=== PATIENT | female | born 1935 | race Hispanic/Latino ===

== ENCOUNTER → 2019-03-08 | Outpatient (CLI) | payer MEDICARE ==
[~2019-03-08] MED LIST: IOPAMIDOL 370 MG/ML 50ML INFUS..BTL INJ ONE; SODIUM CHLORIDE 0.9% 500ML 500 ML ONE; SODIUM CHLORIDE 0.9% INJ 50 ML BAG IV ONE
--- NOTE | 2019-03-08 13:10 | Diagnostic Imaging Report ---
EXAM: CT Chest WITH intravenous contrast 03/08/2019 11:39 AM INDICATION: Abnormal chest radiograph COMPARISON: None TECHNIQUE: Chest was scanned utilizing a multidetector helical scanner from the lung apex through the level of the adrenal glands after administration of IV contrast. Coronal and sagittal reformations were obtained. Routine protocol was performed. IV CONTRAST: 100mL Isovue 370 RADIATION DOSE: Total DLP: 276.4 mGy*cm. Dose modulation, iterative reconstruction, and/or weight based adjustment of the mA/kV was utilized to reduce the radiation dose to as low as reasonably achievable. COMPLICATIONS: None FINDINGS: LINES/ TUBES: None. LUNGS AND AIRWAYS: The central airways are patent. There is volume loss on the left with subsegmental atelectasis of the lingula and near complete atelectasis of the left lower lobe. Lower lobe predominant dependent groundglass opacities and interlobular septal thickening is suggestive of edema. Scattered subcentimeter pulmonary nodules measure up to 4 mm, for example that of the right middle lobe on series 2 image 54. PLEURA: Moderate left pleural effusion. Trace right pleural effusion. No pneumothorax. HEART AND MEDIASTINUM: Atrophic/surgically absent thyroid gland. No supraclavicular, axillary, mediastinal, or hilar lymphadenopathy. Multichamber cardiomegaly. Atherosclerotic calcifications involve the coronary arteries and aorta. No pericardial effusion. This study is not targeted for evaluation for pulmonary embolism, however there are no filling defects to the segmental level of the pulmonary arteries to suggest pulmonary embolism. Small sliding hiatal hernia. UPPER ABDOMEN: Limited contrast-enhanced views of the upper abdomen demonstrate a 1.1 cm cyst at the hepatic dome and no focal abnormality in the remainder of the partially visualized liver, spleen, adrenals, and upper most right kidney. BONES: No acute osseous injury. No suspicious lytic or blastic lesions. Sternotomy wires intact. SOFT TISSUES: Unremarkable. IMPRESSION: Cardiomegaly and pulmonary edema. Moderate left pleural effusion. Trace right pleural effusion. Associated near complete atelectasis of the left lower lobe and subsegmental atelectasis of the lingula. Scattered small pulmonary nodules measure up to 4 mm. If the patient is low risk, no further follow-up is needed. If the patient is high risk, consider chest CT in 12 months per Fleischner society guidelines 2017. Atherosclerotic arterial calcifications including of the coronary arteries. Signed by: Dex Yoder MD on 03/08/2019 1:07 PM
== END ==
LOC: CT 11:30
PROVIDERS: ATTEND Family Medicine Adult Medicine
DX: R91.8 Other nonspecific abnormal finding of lung field (principal)
CPT/HCPCS: 71260; 96360; J7040; Q9967

== ENCOUNTER 2019-08-05 15:49 | Inpatient (IN) | payer MEDICARE, OTHER ==
[~2019-08-05] VITALS: Ht 154.9 cm; Wt 52.4 kg
[2019-08-05] MEDS: ALBUTEROL SULF 0.083% NEB SOLN 3 ML NEB NEB STA ×2 (15:40→16:40)
--- OUTSIDE RECORDS SUMMARY | 2019-08-05 16:03 | XMS REPORT ---
Author Author [facility] Address Unknown Phone Unavailable Care Team Providers Care Personal Lines Underwriter Name Role Phone Maira TROTTER (NS) MARCELO Unavailable Unavailable Payers Payer Name Policy Type Policy Number Effective Date Expiration Date Problems This patient has no known problems. Allergies, Adverse Reactions, Alerts Allergy Name Allergy Type Status Severity Reaction(s) Onset Date Inactive Date Treating Clinician Comments No Known Allergies DA Active U 2019-06-23 00:00:00 Medications This patient has no known medications. Results Test Description Test Time Test Comments Text Results Atomic Results Result Comments GASTRIC,BIOPSY 2019-06-28 16:45:00 RUN DATE: 06/28/19 [facility] - Lab PAGE 1 RUN TIME: 5456 Specimen Inquiry RUN USER: INTERFACE PATIENT: DOMENICO MEDINA LOC: SASHA Valentin #: [id number] AGE/SX: 84/F ROOM: [facility] RE06/23/19REG DR: Fritz Gayle MD : 35 BED: A DIS: 06/26/19 STATUS: DIS IN TLOC: SPEC #: [id number] RECD: 06/25/19 STATUS: IDALIA OCHOA #: [id number] KOURTNEY: 06/24/19-[address]: Payam Nelson MD ENTERED: 06/25/19 SP TYPE: GASTRIC BX OTHR DR: Payam Nelson MD ORDERED: GROSS PROCEDURES: GROSS (06/28/19- 7143) TISSUES: 1. ANTRUM - BX 2. ESOPHAGUS, NOS - ULCER BX CLINICAL HISTORY COLLECTION DATE: 06/24/18 AP FINAL DIAGNOSIS Antrum, biopsy: MILD CHRONIC INFLAMMATION, GASTRIC MUCOSA NO INTESTINAL METAPLASIA SEEN NEGATIVE FOR HELICOBACTER PYLORI BY GIEMSA STAIN NEGATIVE FOR MALIGNANCY Esophagus, biopsy: ULCERATED SQUAMOUS ESOPHAGEAL MUCOSA NEGATIVE FOR METAPLASIA, DYSPLASIA, AND MALIGNANCY DMW/carmen D [id number], [id number] MACROSCOPIC Specimen (1) is received in formalin, labeled with the patient's name, identified as "antrum", and consists of de leon biopsy tissue measuring 0.3 cm, submitted as (1). Specimen (2) is received in formalin, labeled with the patient's name, identified as "esophagus", and consists of de leon biopsy tissue measuring 0.2 cm, submitted as (2). GROSS PERFORMED AT [facility] [address] [facility] CONTINUED ON NEXT PAGE -RUN DATE: 06/28/19 [facility] PAGE 2 RUN TIME: 1645 Specimen Inquiry RUN USER: INTERFACE SPEC #: [id number] PATIENT: DOMENICO MEDINA #[id number] (Continued) MACROSCOPIC (Continued) [place] [address] [phone] MICROSCOPIC All of the stains, including any controls performed, stain appropriately. MICROSCOPIC PERFORMED AT [facility] [address] [place] [address] [phone])[phone] PERFORM[address] SITE Diagnosis performed at: [facility] [address] [place] [address] Signed SIGNATURE ON FILE Jayne Blandon MD 06/28/19 4626 END OF REPORT - XR CHEST 1 V 2019-06-24 09:50:00 FAX: Fritz Simental MD [place]: St: ADM FAX: Long Smith [phone] Name: DOMENICO MEDINA [facility] : 1935 Age/S: 84/F [address] [facility] Unit #: [id number] Loc: V.20[address] [place] [address] Phys: Long Christian [employer]ATOR [employer] Acct: [id number] Dis Date: Status: ADM IN PHONE #: [phone] Exam Date: 06/24/2019919 FAX #: [phone] Reason: SHORTNESS OF BREATH EXAMS: CPT CODE: [id number] XR CHEST 1 V 70768 HISTORY: Shortness of breath. COMPARISON: None available. Location: [facility]. Moderate left effusion with compressive lower lobe atelectasis and patchy infiltrate. Patchy right upper lobe infiltrate as well. Cardiomegaly IMPRESSION: Moderate left effusion with compressive lower lobe atelectasis and infiltrate. Patchy right upper lobe infiltrate as well. at 0919 Reported and signed by: Aleksandar Almanza M.D. CC: Fritz Gayle; Long Christian NP Technologist: Sidra Yoon, RT(R); KURT GRESHAM RT(R) [facility] Date/Time/By: 06/24/2019 (0950) : By: [email or web address] Orig Print D/T: S: 06/24/2019 (4132) PAGE 1 Signed Report PROTHROMBIN TIME 2019-06-24 07:46:00 PROTHROMBIN TIME PATIENT (test code=PTP) 15.7 seconds 9.0-14.0 INTERNATIONAL NORMAL RATIO (test code=INR) 1.3 0.8-1.2 The therapeutic range for oral anticoagulant therapy formost indications is an international normalized ratio (INR)of between 2.0 and 3.0. The recommended therapeutic INRrange for various clinical situations is listed below: Clinical Situation INR range Pulmonary e mbolism treatment (2.0-3.0)Venous thrombosis treatmentVenous thrombosis prophylaxis (high risk surgery)Prevention of systemic embolism from: Acute myocardial infarction Valvular heart disease Atrial fibrillation Mechanical prosthetic heart valves (2.5-3.5) IS PATIENT ON ANTICOAGULANTS? NBASIC METABOLIC [id number] 07:38:00* Test Item Value Reference Range Comments SODIUM (test code=NA) 144 mmol/L 136-145 POTASSIUM (test code=K) 4.4 mmol/L 3.5-5.1 CHLORIDE (test code=CL) 117.0 mmol/L 98-107 CARBON DIOXIDE (test code=CO2) 19.0 mmol/L 21-32 ANION GAP (test code=GAP) 12.4 10-20 GLUCOSE (test code=GLU) 85 mg/dL 74-106 BLOOD UREA NITROGEN (test code=BUN) 39 mg/dL 7-18 GLOMERULAR FILTRATION RATE (test code=GFR) > 60 mL/min >=60 Estimated GFR by using Modified MDRD formula.Chronic kidney disease is defined as either kidney damageor GFR <60 mL/min/1.73 m2 for >3 months. CREATININE (test code=CREAT) 0.80 mg/dL 0.55-1.02 Note change in reference range due to change in reagent. BUN/CREATININE RATIO (test code=BUN/CREA) 48.8 10-20 CALCIUM (test code=CA) 8.4 mg/dL 8.5-10.1 BASIC METABOLIC [id number] 07:33:00* Test Item Value Reference Range Comments SODIUM (test code=NA) 144 mmol/L 136-145 POTASSIUM (test code=K) 4.4 mmol/L 3.5-5.1 CHLORIDE (test code=CL) 117.0 mmol/L 98-107 CARBON DIOXIDE (test code=CO2) mmol/L 21-32 ANION GAP (test code=GAP) 10-20 GLUCOSE (test code=GLU) mg/dL 74-106 BLOOD UREA NITROGEN (test code=BUN) mg/dL 7-18 GLOMERULAR FILTRATION RATE (test code=GFR) mL/min >=60 CREATININE (test code=CREAT) mg/dL 0.55-1.02 BUN/CREATININE RATIO (test code=BUN/CREA) 10-20 CALCIUM (test code=CA) mg/dL 8.5-10.1 CBC W/AUTO [id number] 07:23:00* Test Item Value Reference Range Comments WHITE BLOOD CELL (test code=WBC) 10.2 K/mm3 4.5-12.5 RED BLOOD CELL (test code=RBC) 3.45 mill/mm3 3.7-5.2 HEMOGLOBIN (test code=HGB) 9.4 gram/dL 11.5-15.5 RESULT VERIFIED BY REPEAT ANALYSIS HEMATOCRIT (test code=HCT) 31.0 % 36.0-46.0 MEAN CELL VOLUME (test code=MCV) 89.9 fL 80-98 MEAN CELL HGB (test code=MCH) 27.2 picogram 27.0-33.0 MEAN CELL HGB CONCETRATION (test code=MCHC) 30.3 gram/dL 33.0-36.0 RED CELL DISTRIBUTION WIDTH (test code=RDW) 17.2 % 11.6-16.2 RED CELL DISTRIBUTION WIDTH SD (test code=RDW-SD) 55.1 fL 37.0-51.0 PLATELET COUNT (test code=PLT) 196 K/mm3 150-450 MEAN PLATELET VOLUME (test code=MPV) 9.3 fL 6.7-11.0 NEUTROPHIL % (test code=NT%) 79.7 % 39.0-69.0 IMMATURE GRANULOCYTE % (test code=IG%) 3.4 % 0.0-5.0 LYMPHOCYTE % (test code=LY%) 9.4 % 25.0-55.0 MONOCYTE % (test code=MO%) 5.3 % 0.0-10.0 EOSINOPHIL % (test code=EO%) 1.6 % 0.0-5.0 BASOPHIL % (test code=BA%) 0.6 % 0.0-1.0 NUCLEATED RBC % (test code=NRBC%) 0.3 % 0-0 NEUTROPHIL # (test code=NT#) 8.12 K/mm3 1.8-7.7 IMMATURE GRANULOCYTE # (test code=IG#) 0.35 x10 3/uL 0-0.03 LYMPHOCYTE # (test code=LY#) 0.96 K/mm3 1.0-5.0 MONOCYTE # (test code=MO#) 0.54 K/mm3 0-0.8 EOSINOPHIL # (test code=EO#) 0.16 K/mm3 0.0-0.5 BASOPHIL # (test code=BA#) 0.06 K/mm3 0.0-0.2 NUCLEATED RBC # (test code=NRBC#) 0.03 K/mm3 0.0-0.1 B-TYPE NATRIURETIC [id number] 20:37:00* Test Item Value Reference Range Comments B-TYPE NATRIURETIC PEPTIDE (test code=BNP) 3464.06 pgram/mL 0-100 HGB [id number] 19:24:00* Test Item Value Reference Range Comments HEMOGLOBIN (test code=HGB) 6.2 gram/dL 11.5-15.5 HEMATOCRIT (test code=HCT) 21.4 % 36.0-46.0 Results called to [id number] by [email or web address] 06/23/19 1924Critical results verified and read back by Nurse? Y BASIC METABOLIC [id number] 19:00:00* Test Item Value Reference Range Comments SODIUM (test code=NA) 145 mmol/L 136-145 POTASSIUM (test code=K) 5.2 mmol/L 3.5-5.1 CHLORIDE (test code=CL) 120.0 mmol/L 98-107 CARBON DIOXIDE (test code=CO2) 20.0 mmol/L 21-32 ANION GAP (test code=GAP) 10.2 10-20 GLUCOSE (test code=GLU) 111 mg/dL 74-106 BLOOD UREA NITROGEN (test code=BUN) 42 mg/dL 7-18 GLOMERULAR FILTRATION RATE (test code=GFR) > 60 mL/min >=60 Estimated GFR by using Modified MDRD formula.Chronic kidney disease is defined as either kidney damageor GFR <60 mL/min/1.73 m2 for >3 months. CREATININE (test code=CREAT) 0.70 mg/dL 0.55-1.02 Note change in reference range due to change in reagent. BUN/CREATININE RATIO (test code=BUN/CREA) 60.0 10-20 CALCIUM (test code=CA) 8.2 mg/dL 8.5-10.1 BASIC METABOLIC [id number] 18:53:00* Test Item Value Reference Range Comments SODIUM (test code=NA) 145 mmol/L 136-145 POTASSIUM (test code=K) 5.2 mmol/L 3.5-5.1 CHLORIDE (test code=CL) 120.0 mmol/L 98-107 CARBON DIOXIDE (test code=CO2) mmol/L 21-32 ANION GAP (test code=GAP) 10-20 GLUCOSE (test code=GLU) mg/dL 74-106 BLOOD UREA NITROGEN (test code=BUN) mg/dL 7-18 GLOMERULAR FILTRATION RATE (test code=GFR) mL/min >=60 CREATININE (test code=CREAT) mg/dL 0.55-1.02 BUN/CREATININE RATIO (test code=BUN/CREA) 10-20 CALCIUM (test code=CA) mg/dL 8.5-10.1 HGB [id number] 18:12:00* Test Item Value Reference Range Comments HEMOGLOBIN (test code=HGB) 6.9 gram/dL 11.5-15.5 RESULT VERIFIED BY REPEAT ANALYSIS HEMATOCRIT (test code=HCT) 22.9 % 36.0-46.0 - CT ABD PELVIS [id number] 10:58:00 Name: DOMENICO MEDINA [facility] : 1935 Age/S: 84 / F [address] Unit #: [id number] Loc: [place] [address] Phys: Jeff Gilliam MD Acct: [id number] Dis Date: Status: REG ER PHONE #: [phone] Exam Date: 06/23/2019 1035 FAX #: [phone] Reason: GI bleed EXAMS: CPT CODE: [id number] CT ABD PELVIS W/CONT 97495 HISTORY: GI bleed, hematemesis TECHNIQUE: Immediate and delayed [address] images were obtained through the abdomen and pelvis after IV administration of 100 mL of Isovue-370 contrast. Sagittal and coronal reformatted images were generated. Automated exposure control for dose reduction. COMPARISON: None FINDINGS: Moderate bilateral pleural effusion. Partial left lingular and left lower lobe atelectasis. Cardiomegaly. Coronary artery calcification. Liver, gallbladder, pancreas, spleen, adrenal glands, and right kidney are unremarkable. Left inferior pole 2.8 cm renal cyst. Limited evaluation the GI tract without oral contrast. Large hiatal hernia. Stomach is otherwise unremarkable. No small bowel dilation. Colon is unremarkable. 8 cm right upper quadrant hernia containing loop of transverse colon. Additional smaller fat-containing ventral hernias. No inflammatory changes. No free air or free fluid. No lymphadenopathy. Aortoiliac atherosclerotic vascular calcification without aneurysm. Right aortofemoral bypass. Urinary bladder is unremarkable. Hysterectomy. No pelvic free fluid. Degenerative changes of the spine, sacroiliac joints, and hips. Proximal right femur fixation hardware. IMPRESSION: Large hiatal hernia. 8 cm right upper quadrant hernia containing loop of transverse colon. No inflammatory changes. No evidence of bowel obstruction. Moderate bilateral pleural effusion. Partial left lingular and left lower lobe atelectasis. PAGE 1 Signed Report (CONTINUED) Name: DOMENICO MEDINA [facility] : 1935 Age/S: 84 / F [address] Unit #: [id number] Loc: [place] [address] Phys: Jeff Gilliam MD Acct: [id number] Dis Date: Status: REG ER PHONE #: [phone] Exam Date: 06/23/2019 1035 FAX #: [phone] Reason: GI bleed EXAMS: CPT CODE: [id number] CT ABD PELVIS W/CONT 65745 <Continued> at 1058 Reported and signed by: Iva Bedoya D.O. CC: Jeff Gilliam MD Technologist:Connor Ramos RT(R),(MR),(CT) CTDI: DLP: Trnscb Date/Time: 06/23/2019 (6518) [email or web address] Orig Print D/T: S: 06/23/2019 (6548) PAGE 2 Signed Report BASIC METABOLIC [id number] 09:53:00* Test Item Value Reference Range Comments SODIUM (test code=NA) 142 mmol/L 136-145 POTASSIUM (test code=K) 5.3 mmol/L 3.5-5.1 CHLORIDE (test code=CL) 116.0 mmol/L 98-107 CARBON DIOXIDE (test code=CO2) 18.0 mmol/L 21-32 ANION GAP (test code=GAP) 13.3 10-20 GLUCOSE (test code=GLU) 96 mg/dL 74-106 BLOOD UREA NITROGEN (test code=BUN) 42 mg/dL 7-18 GLOMERULAR FILTRATION RATE (test code=GFR) > 60 mL/min >=60 Estimated GFR by using Modified MDRD formula.Chronic kidney disease is defined as either kidney damageor GFR <60 mL/min/1.73 m2 for >3 months. CREATININE (test code=CREAT) 0.80 mg/dL 0.55-1.02 Note change in reference range due to change in reagent. BUN/CREATININE RATIO (test code=BUN/CREA) 52.5 10-20 CALCIUM (test code=CA) 8.7 mg/dL 8.5-10.1 HEPATIC FUNCTION [id number] 09:53:00* Test Item Value Reference Range Comments TOTAL PROTEIN (test code=PROT) 6.7 gram/dL 6.4-8.2 ALBUMIN (test code=ALB) 2.8 g/dL 3.4-5.0 GLOBULIN (test code=GLOB) 3.9 gram/dL 2.7-4.2 ALBUMIN/GLOBULIN RATIO (test code=A/G) 0.7 0.75-1.50 BILIRUBIN TOTAL (test code=BILT) 0.70 mg/dL 0.0-1.0 BILIRUBIN DIRECT (test code=BILD) 0.29 mg/dL 0.0-0.20 SGOT/AST (test code=AST) 22 IUnit/L 15-37 SGPT/ALT (test code=ALT) 15 IUnit/L 12-78 ALKALINE PHOSPHATASE TOTAL (test code=ALKP) 108 IUnit/L 45-117 Note change in reference range due to change in reagent. [id number] 09:53:00* Test Item Value Reference Range Comments LIPASE (test code=LIP) 70 U/L 73.0-393.0 [id number] 09:53:00* Test Item Value Reference Range Comments TROPONIN-I (test code=TROPI) <0.015 ng/mL 0-0.045 LACTIC [id number] 09:53:00* Test Item Value Reference Range Comments LACTIC ACID (test code=LACT) 0.7 mmol/L 0.4-1.9 BASIC METABOLIC [id number] 09:33:00* Test Item Value Reference Range Comments SODIUM (test code=NA) 142 mmol/L 136-145 POTASSIUM (test code=K) 5.3 mmol/L 3.5-5.1 CHLORIDE (test code=CL) 116.0 mmol/L 98-107 CARBON DIOXIDE (test code=CO2) mmol/L 21-32 ANION GAP (test code=GAP) 10-20 GLUCOSE (test code=GLU) mg/dL 74-106 BLOOD UREA NITROGEN (test code=BUN) mg/dL 7-18 GLOMERULAR FILTRATION RATE (test code=GFR) mL/min >=60 CREATININE (test code=CREAT) mg/dL 0.55-1.02 BUN/CREATININE RATIO (test code=BUN/CREA) 10-20 CALCIUM (test code=CA) mg/dL 8.5-10.1 HEPATIC FUNCTION [id number] 09:33:00* Test Item Value Reference Range Comments TOTAL PROTEIN (test code=PROT) gram/dL 6.4-8.2 ALBUMIN (test code=ALB) g/dL 3.4-5.0 GLOBULIN (test code=GLOB) gram/dL 2.7-4.2 ALBUMIN/GLOBULIN RATIO (test code=A/G) 0.75-1.50 BILIRUBIN TOTAL (test code=BILT) mg/dL 0.0-1.0 BILIRUBIN DIRECT (test code=BILD) mg/dL 0.0-0.20 SGOT/AST (test code=AST) IUnit/L 15-37 SGPT/ALT (test code=ALT) IUnit/L 12-78 ALKALINE PHOSPHATASE TOTAL (test code=ALKP) IUnit/L 45-117 [id number] 09:33:00* Test Item Value Reference Range Comments LIPASE (test code=LIP) U/L 73.0-393.0 [id number] 09:33:00* Test Item Value Reference Range Comments TROPONIN-I (test code=TROPI) ng/mL 0-0.045 PROTHROMBIN [id number] 09:29:00* Test Item Value Reference Range Comments PROTHROMBIN TIME PATIENT (test code=PTP) 16.6 seconds 9.0-14.0 INTERNATIONAL NORMAL RATIO (test code=INR) 1.4 0.8-1.2 The therapeutic range for oral anticoagulant therapy formost indications is an international normalized ratio (INR)of between 2.0 and 3.0. The recommended therapeutic INRrange for various clinical situations is listed below: Clinical Situation INR range Pulmonary e mbolism treatment (2.0-3.0)Venous thrombosis treatmentVenous thrombosis prophylaxis (high risk surgery)Prevention of systemic embolism from: Acute myocardial infarction Valvular heart disease Atrial fibrillation Mechanical prosthetic heart valves (2.5-3.5) IS PATIENT ON ANTICOAGULANTS? NTHROMBOPLASTIN TIME [id number] 09:29:00* Test Item Value Reference Range Comments THROMBOPLASTIN TIME PARTIAL (test code=PTT) 34.6 seconds 25.0-36.5 IS PATIENT ON ANTICOAGULANTS? NCBC W/O [id number] 09:20:00* Test Item Value Reference Range Comments WHITE BLOOD CELL (test code=WBC) 7.9 K/mm3 4.5-12.5 RED BLOOD CELL (test code=RBC) 3.49 mill/mm3 3.7-5.2 HEMOGLOBIN (test code=HGB) 9.7 gram/dL 11.5-15.5 HEMATOCRIT (test code=HCT) 33.0 % 36.0-46.0 MEAN CELL VOLUME (test code=MCV) 94.6 fL 80-98 MEAN CELL HGB (test code=MCH) 27.8 picogram 27.0-33.0 MEAN CELL HGB CONCETRATION (test code=MCHC) 29.4 gram/dL 33.0-36.0 RED CELL DISTRIBUTION WIDTH (test code=RDW) 17.4 % 11.6-16.2 PLATELET COUNT (test code=PLT) 237 K/mm3 150-450 MEAN PLATELET VOLUME (test code=MPV) 9.6 fL 6.7-11.0 CT CHEST [id number] 12:57:00 [place] [address] Patient Name: DOMENICO MEDINA MR #: [id number] : 1935 Age/Sex: 83/F Req #: [id number] Adm Physician: Ordered by: MARCELO TROTTER MD Report #: [id number] Location: CT Room/Bed: Procedure: [id number] CT/CT CHEST W Exam Date: 03/08/19 Exam Time: 1230 REPORT STATUS: Signed EXAM: CT [address] [facility] WITH intravenous contrast 03/08/2019 11:39 AM INDICATION: Abnormal chest ra diograph COMPARISON: None TECHNIQUE: Chest was scanned utilizing a multide tector helical scanner from the lung apex through the level of the adrenal gla nds after administration of IV contrast. Coronal and sagittal reformations wer e obtained. Routine protocol was performed. IV CONTRAST: 100mL Isovue 370 RADIATION DOSE: Total DLP: 276.4 mGy*cm. Dose modulation, iterative reconst ruction, and/or weight based adjustment of the mA/kV was utilized to reduce th e radiation dose to as low as reasonably achievable. COMPLICATIONS: None FINDINGS: LINES/ TUBES: None. LUNGS AND AIRWAYS: The central airways are patent. There is volume loss on the left with subsegmental atelectasis of the lingula and near complete atelectasis of the left lower lobe. Lower lobe predominant dependent groundglass opacities and interlobular septal thickening is suggestive of edema. Scattered subcentimeter pulmonary nodules measure up to 4 mm, for example that of the right middle lobe on series 2 image 54. PLEURA: Moderate left pleural effusion. Trace right pleural effusion. No pne umothorax. HEART AND MEDIASTINUM: Atrophic/surgically absent thyroid gland. No supraclavicular, axillary, mediastinal, or hilar lymphadenopathy. Multich kristofer cardiomegaly. Atherosclerotic calcifications involve the coronary arteri es and aorta. No pericardial effusion. This study is not targeted for evaluat ion for pulmonary embolism, however there are no filling defects to the segmen mary kay level of the pulmonary arteries to suggest pulmonary embolism. Small slidi ng hiatal hernia. UPPER ABDOMEN: Limited contrast-enhanced views of the u pper abdomen demonstrate a 1.1 cm cyst at the hepatic dome and no focal abnorm ality in the remainder of the partially visualized liver, spleen, adrenals, an d upper most right kidney. BONES: No acute osseous injury. No suspicious ly tic or blastic lesions. Sternotomy wires intact. SOFT TISSUES: Unremarkab le. IMPRESSION: Cardiomegaly and pulmonary edema. Moderate left ple ural effusion. Trace right pleural effusion. Associated near complete atelecta sis of the left lower lobe and subsegmental atelectasis of the lingula. S cattered small pulmonary nodules measure up to 4 mm. If the patient is low ris k, no further follow-up is needed. If the patient is high risk, consider chest CT in 12 months per Fleischner society guidelines 2017. Atherosclerotic ar terial calcifications including of the coronary arteries. Signed by: Yao Casanova MD on 03/08/2019 1:07 PM Dictated By: DESIREE CASANOVA MD 1308 Transcribed By: RELL on 03/08/19 1 307 COPY TO: MARCELO TROTTER MD (NS)
[2019-08-05] MEDS ORDERED: ASPIRIN 81 MG CHEW TAB PO ONE (16:15)
[2019-08-05 16:22] LABS: BASOPHILS % 0.2 % (0.0-1.0); EOSINOPHILS % 0.2 % (0.0-6.0); HEMATOCRIT 35.7 % (34.2-44.1); HEMOGLOBIN 10.2 g/dL (12.0-16.0); LYMPHOCYTES # (AUTO) 0.9 (1.0-3.2); LYMPHOCYTES % 8.6 % (18.0-39.1); MEAN CORPUSCULAR HEMOGLOBIN 25.6 pg (28-32); MEAN CORPUSCULAR HGB CONC 28.6 g/dL (31-35); MEAN CORPUSCULAR VOLUME 89.7 fL (81-99); MONOCYTES # (AUTO) 0.5 (0.2-0.8); NEUTROPHILS # (AUTO) 9.1 (2.1-6.9); NEUTROPHILS % 85.6 % (38.7-80.0); PLATELET COUNT 292 x10e3/uL (140-360); RED BLOOD COUNT 3.98 x10e6/uL (3.6-5.1); RED CELL DISTRIBUTION WIDTH 19.6 % (11.7-14.4)
[2019-08-05 16:27] LABS: ABG HCO3 23 mmol/L (23-28); ABG PCO2 37 mmHg (41-51); ABG PO2 317 mmHg (80-105)
[2019-08-05 16:36] LABS: ALBUMIN 3.7 g/dL (3.5-5.0); ALBUMIN/GLOBULIN RATIO 1.1 (0.8-2.0); ALKALINE PHOSPHATASE 87 IU/L (40-150); ANION GAP 18.3 mmol/L (8-16); BLOOD UREA NITROGEN 25 mg/dL (7-26); BUN/CREATININE RATIO 26 (6-25); CALCIUM 9.6 mg/dL (8.4-10.2); CARBON DIOXIDE 23 mmol/L (22-29); CHLORIDE 107 mmol/L (98-107); CREATINE KINASE 32 IU/L (29-168); CREATININE, SERUM 0.96 mg/dL (0.57-1.11); EST GLOMERULAR FILTRATION RATE 55 ML/MIN (60-); GLUCOSE 99 mg/dL (74-118); POTASSIUM 3.3 mmol/L (3.5-5.1); SODIUM 145 mmol/L (136-145)
[2019-08-05 16:43] LABS: ALANINE AMINOTRANSFERASE < 6 IU/L (0-55)
[2019-08-05 16:47] LABS: B-TYPE NATRIURETIC PEPTIDE2 3382.8 pg/mL (0-100)
[2019-08-05] MEDS ORDERED: POTASSIUM CHLORIDE 20MEQ/100ML 100 ML IV ONE (17:00)
[2019-08-05] MEDS ORDERED: ALBUTEROL SULF 0.083% NEB SOLN 3 ML NEB NEB PRN (17:00)
[2019-08-05 17:02] LABS: CLARITY,URINE SL CLOUDY (CLEAR); COLOR,URINE YELLOW (YELLOW); LEUKOCYTE ESTERASE ,URINE NEGATIVE (NEGATIVE); NITRITE,URINE NEGATIVE (NEGATIVE); PROTEIN,URINE DIPSTICK TRACE (NEGATIVE)
--- NOTE | 2019-08-05 17:02 | Diagnostic Imaging Report ---
EXAM: CHEST SINGLE (PORTABLE) DATE: 08/05/2019 3:54 PM INDICATION: Rotatory distress COMPARISON: CT chest from 03/08/2019 FINDINGS/IMPRESSION: There are postsurgical changes from prior median sternotomy. Multiple surgical clips noted overlying the neck and left perihilar region. The trachea is midline. There is a small left and suspected trace right pleural effusion. There is prominence of the interstitium as well as patchy retrocardiac and left lower lung zone opacities. Findings can be seen in the setting of edema. An airspace process such as pneumonitis could have a similar appearance. There is no evidence for pneumothorax. The cardiac silhouette appears prominent which may be secondary to technique. Atherosclerotic calcifications noted within the thoracic aorta. No acute osseous abnormality is identified. Signed by: Dr. Milan Hernandez MD on 08/05/2019 4:59 PM
[2019-08-05 17:03] LABS: BILIRUBIN,URINE NEGATIVE (NEGATIVE); KETONES,URINE NEGATIVE (NEGATIVE); URINE UROBILINOGEN 1 mg/dL (0.2 - 1)
[2019-08-05 17:15] LABS: BACTERIA,URINE FEW /HPF; EPITHELIAL CELLS,URINE FEW /LPF
[2019-08-05 17:16] LABS: HYALINE CASTS 0-1 (0-1)
[2019-08-05] MEDS: PIPER-TAZ 3.375 GM 50 ML IV SCH (18:07)
[2019-08-05] MEDS: FAMOTIDINE 20 MG/2 ML VIAL IV SCH (18:08)
--- NOTE | 2019-08-05 18:32 | Diagnostic Imaging Report ---
EXAM: CT Chest, Abdomen and Pelvis WITH contrast INDICATION: Chest pain and shortness of breath suggestive of pulmonary concern for pulmonary embolism. Abdominal distention. COMPARISON: CT chest dated 03/08/2019. TECHNIQUE: Chest, abdomen and pelvis were scanned utilizing a multidetector helical scanner from the lung apex to the pubic symphysis before and after administration of IV contrast. Coronal and sagittal reformations were obtained. Pulmonary embolism protocol was performed. Scan was performed when during portal venous phase. IV CONTRAST: 100 cc Isovue-370. ORAL CONTRAST: Water RADIATION DOSE: Total DLP: 936.18 mGy*cm Estimated effective dose: (DLP x 0.015 x size factor) mSv COMPLICATIONS: None FINDINGS: LINES and TUBES: None. LUNGS AND AIRWAYS: No filling defects within the pulmonary arteries to suggest pulmonary embolism. Bilateral lower lobe compressive atelectasis. Mild bilateral pulmonary edema. PLEURA: Bilateral small to moderate volume pleural effusions. HEART AND MEDIASTINUM: The thyroid gland is normal. No mediastinal, hilar or axillary lymphadenopathy. The heart is mildly enlarged. There is no pericardial effusion. The main pulmonary artery measures 3.1 cm in diameter, mildly dilated. Status post CABG. Atherosclerotic calcifications of the thoracic aorta without aneurysmal dilatation. HEPATOBILIARY: Reflux of contrast into the hepatic veins and IVC suggestive of right-sided failure. 1.3 cm low-attenuation lesion in hepatic dome on image 9 series 5. Mild diffuse periportal edema. No biliary ductal dilation. GALLBLADDER: No radio-opaque stones or sludge. No wall thickening. SPLEEN: No splenomegaly. PANCREAS: No focal masses or ductal dilatation. ADRENALS: No adrenal nodules KIDNEYS/URETERS: Kidneys enhance symmetrically. No hydronephrosis. 0.9 cm cyst in the posterior lower pole of the left kidney which is mildly atrophic. Bilateral extrarenal pelvis. GI TRACT: No small bowel dilatation to suggest obstruction. There is a large volume of stool within the rectosigmoid, associated with mild rectal wall sigmoid wall thickening and trace fluid suggests stercoral colitis. There is a moderate volume of stool within the colon. Appendix is nonvisualized. Small right hernia. PELVIC ORGANS/BLADDER: The uterus is absent. The urinary bladder is decompressed by Herring catheter. LYMPH NODES: No lymphadenopathy. VESSELS: There is moderate atherosclerotic disease in the aorta and major arterial branches. PERITONEUM / RETROPERITONEUM: Small volume of free fluid within the pelvis. BONES: There are degenerative changes in the lumbar spine. Status post ORIF of the proximal right femur. SOFT TISSUES: Multiple ventral abdominal hernias, the largest infra umbilical containing nondilated bowel loops. IMPRESSION: 1. Bilateral vcpsv-mw-yxcgtain volume pleural effusions and bibasilar compressive atelectasis. 2. No pulmonary embolism. 3. Moderate cardiomegaly and mild bilateral pulmonary edema/venous congestion. 4. Findings suggestive of stercoral colitis and fecal impaction with a large volume of stool within the colon. 5. Small volume ascites. Signed by: Dr. Evelio Ceballos M.D. on 08/05/2019 6:29 PM
[2019-08-05] MEDS ORDERED: IOPAMIDOL 370 MG/ML 200 ML INFUS..BTL INJ ONE (19:01)
[2019-08-05] MEDS ORDERED: SODIUM CHLORIDE 0.9% 50ML 50 ML ONE (19:01)
--- NOTE | 2019-08-05 19:17 | NUR ---
P.99 R.20 128/50 98.9F -DISCHARGE VITAL SIGNS REPORT GIVEN TO SHERWIN VALLES BY KENDALL BUSH FROM PREVIOUS SHIFT NO DISTRESS NOTED FAMILY AT BEDSIDE
[2019-08-05 19:35] VITALS: BP 126/51
[2019-08-05] MEDS ORDERED: FUROSEMIDE INJ 10 MG/ML 4 ML VIAL IV SCH (21:00)
[2019-08-05] MEDS ORDERED: ZOLPIDEM TARTRATE 5 MG TAB PO PRN (21:00)
[2019-08-05 21:28] VITALS: BP 126/51
[2019-08-05 22:14] VITALS: BP 126/51
[2019-08-06] VITALS (8 sets, daily range): BP systolic 95–138; BP diastolic 43–66
[2019-08-06] MEDS: PIPER-TAZ 3.375 GM 50 ML IV SCH ×5 (00:31→23:51)
[2019-08-06 01:13] LABS: CREATINE KINASE MB 1.4 ng/mL (0-4.3)
[2019-08-06 05:10] LABS: BASOPHILS % 0.3 % (0.0-1.0); EOSINOPHILS % 0.2 % (0.0-6.0); HEMATOCRIT 31.2 % (34.2-44.1); HEMOGLOBIN 9.1 g/dL (12.0-16.0); LYMPHOCYTES # (AUTO) 0.5 (1.0-3.2); LYMPHOCYTES % 3.7 % (18.0-39.1); MEAN CORPUSCULAR HEMOGLOBIN 25.3 pg (28-32); MEAN CORPUSCULAR HGB CONC 29.2 g/dL (31-35); MEAN CORPUSCULAR VOLUME 86.7 fL (81-99); MONOCYTES # (AUTO) 0.9 (0.2-0.8); MONOCYTES % 6.1 % (4.4-11.3); NEUTROPHILS # (AUTO) 12.4 (2.1-6.9); NEUTROPHILS % 89.1 % (38.7-80.0); PLATELET COUNT 222 x10e3/uL (140-360); RED CELL DISTRIBUTION WIDTH 19.9 % (11.7-14.4)
[2019-08-06 07:03] LABS: ALANINE AMINOTRANSFERASE < 6 IU/L (0-55); ALBUMIN 3.1 g/dL (3.5-5.0); ALBUMIN/GLOBULIN RATIO 1.1 (0.8-2.0); ALKALINE PHOSPHATASE 61 IU/L (40-150); BLOOD UREA NITROGEN 29 mg/dL (7-26); BUN/CREATININE RATIO 27 (6-25); CALCIUM 8.9 mg/dL (8.4-10.2); CARBON DIOXIDE 21 mmol/L (22-29); CHLORIDE 107 mmol/L (98-107); CREATININE, SERUM 1.06 mg/dL (0.57-1.11); EST GLOMERULAR FILTRATION RATE 49 ML/MIN (60-); GLUCOSE 95 mg/dL (74-118); SODIUM 146 mmol/L (136-145)
[2019-08-06 07:21] LABS: CREATINE KINASE MB 2.1 ng/mL (0-5.0)
[2019-08-06 07:22] LABS: LYMPHOCYTES % (MANUAL) 5 % (19-48); MONOCYTES % (MANUAL) 7 % (3.4-9.0); NEUTROPHILS % (MANUAL) 88 % (40-74); PLATELET ESTIMATE ADEQUATE; PLATELET MORPHOLOGY COMMENT NORMAL; RBC MORPHOLOGY COMMENT NORMAL
[2019-08-06] MEDS ORDERED: MINERAL OIL 132 ML BTL PR ONE ×2 (08:10→08:50)
[2019-08-06] MEDS ORDERED: POTASSIUM CHLORIDE 20MEQ/100ML 100 ML IV ONE (08:45)
[2019-08-06] MEDS: CARVEDILOL 3.125 MG TAB PO SCH ×2 (09:00→18:17)
[2019-08-06] MEDS: LISINOPRIL 2.5 MG TAB PO SCH (09:00)
[2019-08-06] MEDS ORDERED: COZAAR25 MG PO (09:35)
[2019-08-06] MEDS ORDERED: CALCIUM600 MG PO (09:35)
[2019-08-06] MEDS ORDERED: LIPITOR20 MG PO (09:35)
[2019-08-06] MEDS ORDERED: CILOSTAZOL100 MG PO (09:35)
[2019-08-06] MEDS ORDERED: LASIX40 MG PO (09:35)
[2019-08-06] MEDS ORDERED: FISH OIL 1,2001 EAC1 PO (09:35)
[2019-08-06] MEDS ORDERED: PEPCID20 MG PO (09:35)
[2019-08-06] MEDS ORDERED: MULTI-VITAMIN1 EACH PO (09:35)
[2019-08-06] MEDS ORDERED: ASPIRIN EC81 MG PO (09:35)
[2019-08-06] MEDS ORDERED: PLAVIX75 MG PO (09:35)
[2019-08-06] MEDS ORDERED: POTASSIUM CHLO20 ME1 PO (09:35)
[2019-08-06] MEDS ORDERED: VITAMIN B-12500 MC3 SL (09:35)
[2019-08-06] MEDS ORDERED: ZOLOFT50 MG PO (09:41)
[2019-08-06] MEDS ORDERED: SYNTHROID50 MCG PO (09:42)
[2019-08-06] MEDS ORDERED: SYNTHROID100 MCG PO (09:42)
[2019-08-06] MEDS ORDERED: CARVEDILOL3.125 MG PO (09:42)
[2019-08-06] MEDS ORDERED: PANTOPRAZOLE SO40 MG PO (09:42)
[2019-08-06] MEDS ORDERED: MELATONIN3 MG PO (09:42)
[2019-08-06] MEDS ORDERED: SODIUM CHLORIDE 0.9% 250ML 250 ML ONE (10:45)
[2019-08-06] MEDS: FAMOTIDINE 20 MG/2 ML VIAL IV SCH ×2 (11:14→18:15)
--- NOTE | 2019-08-06 11:37 | Progress Note ---
DATE: SUBJECTIVE: The patient was taken off BiPAP last night and is now on nasal cannula. CT scan of the abdomen and pelvis showed fecal impaction and some chronic inflammation. PHYSICAL EXAMINATION: VITAL SIGNS: The patient is afebrile. The patient is on nasal cannula and saturating 100%. Temperature is 99.8. HEENT: Shows no facial swelling or erythema. CARDIAC: Reveals irregular rhythm with a systolic murmur. LUNGS: Auscultation of lungs shows decreased breath sounds at the bases. ABDOMEN: Mildly distended. There is a ventral hernia. There is no leg edema or calf tenderness. LABORATORY DATA: White blood cell count is 13.9, hemoglobin is 9.1. The platelet count is 222. The BUN to creatinine ratio is 29 to 1.06 and the carbon dioxide is 21. The potassium is 3 and the sodium is 146. The BNP is 3382. Troponin I is mildly elevated at 0.3. IMPRESSION: 1. Acute on chronic systolic congestive heart failure. 2. Fecal impaction with stercoral colitis. 3. Fever of unclear etiology. 4. Hypokalemia. PLAN: 1. Continue current antibiotics and await culture results. 2. Fleets enema. 3. GI consultation. 4. The patient's home medications once they are available. 5. Cardiology consultation. 6. Diuresis. Elias Adams MD [facility]/JESSEL /[id number]
[2019-08-06] MEDS ORDERED: PEG (High)/E-LYTE SOLN 4,000 ML BTL PO ONE (14:30)
--- NOTE | 2019-08-06 14:53 | Diagnostic Imaging Report ---
Abdomen, 1 view. History: NG tube placement. Findings: The patient is rotated and motion artifact is present. The NG tube is visualized terminating in the right mid abdomen, most likely in the gastric antrum. Mildly dilated loops of small bowel are noted in the pelvis. Signed by: Frankie Cifuentes on 08/06/2019 2:51 PM
[2019-08-06] MEDS: HYDROCODONE/APAP 5MG-325MG TAB PO PRN (20:20)
[2019-08-07] VITALS (7 sets, daily range): BP systolic 95–118; BP diastolic 47–54
--- NOTE | 2019-08-07 02:32 | Consultation ---
DATE OF CONSULTATION: 08/06/2019 GI Consult Note REASON FOR CONSULT: Severe constipation and fecal impaction. HISTORY OF PRESENTING ILLNESS: An 84-year-old female from whom I cannot derive any history. The patient is currently very somnolent and lethargic. She got admitted with decompensated heart failure, pulmonary edema. Currently being diuresed. She also has some underlying sepsis for which she is getting intravenous Zosyn. GI is being consulted because the CT scan of the abdomen and pelvis showed severe constipation and fecal impaction. The patient is not on any opioids. She has a baseline constipation at home. REVIEW OF SYSTEMS: Unobtainable. PAST MEDICAL HISTORY: Hypothyroidism, coronary artery disease, congestive heart failure, hyperlipidemia, hypertension, GERD. PAST SURGICAL HISTORY: Unknown, although patient has a surgical scar on abdominal exam. FAMILY HISTORY: Noncontributory given advanced age. SOCIAL HISTORY: No smoking, alcohol, or any illicit drug use. ALLERGIES: NO KNOWN DRUG ALLERGIES. HOME MEDICATIONS: 1. Aspirin. 2. Atorvastatin. 3. Calcium carbonate. 4. Carvedilol. 5. Cilostazol. 6. Clopidogrel. 7. Vitamin B12. 8. Famotidine. 9. Furosemide 40 mg p.o. daily. 10. Levothyroxine. 11. Losartan. 12. Melatonin. 13. Multivitamin. 14. [place]-3 fatty acid. 15. Pantoprazole. 16. Potassium chloride. 17. Sertraline. INPATIENT MEDICATIONS: List reviewed as per AUG. She is on: 1. Hydrocodone. 2. Intravenous Zosyn. 3. Famotidine. 4. Zolpidem. 5. Lisinopril. 6. Albuterol inhaler. 7. Carvedilol. PHYSICAL EXAMINATION: VITAL SIGNS: Temperature 97.5, pulse 83, respirations 18, blood pressure 116/66, oxygen saturation 96% on 3 L of nasal cannula. GENERAL: Lethargic, drowsy, somnolent. HEENT: Oral mucosa is moist, anicteric sclerae. CVS: S1, S2 regular. LUNGS: Bilateral occasional scattered rales predominantly at bases. ABDOMEN: Soft, nondistended, nontender. No periumbilical hernia. Bowel sounds present, although it is hypoactive. EXTREMITIES: Warm, trace bilateral leg edema. LABORATORY DATA: WBC 13.90, hemoglobin 9.1, hematocrit 31.2, MCV 86.7, and platelet count 222. Sodium 146, potassium 3.0, chloride 107, bicarb 21, BUN 29, creatinine 1.06, and glucose is 95. Liver enzymes showed a total bilirubin 1.6, AST 17, ALT less than 6, alkaline phosphatase 61. Abdominal x-ray is done earlier showed NG tube in place. CT of the abdomen and pelvis with contrast showed: 1. Bilateral opuiv-qk-ipmroumv volume pleural effusion, bibasilar compressive atelectasis. 2. No pulmonary embolism. 3. Moderate cardiomegaly and mild bilateral pulmonary edema/venous congestion. 4. Finding suggestive of stercoral colitis and fecal impaction with large volume of stool within the colon. 5. Small volume ascites. IMPRESSION: Slow transit constipation with severe fecal stasis and fecal impaction in the rectum. Because of the fecal impaction in the rectum, patient most likely having stercoral ulcer. PLAN: Digital disimpaction has already been attempted by the nurses. NG tube was placed to give GoLYTELY. However, the patient received only 500 mL of GoLYTELY and after that she pulled out the NG tube. The patient now is having bowel movements. RECOMMEND: I am taking the liberty to discontinue hydrocodone. We will place MiraLAX as well as a stool softener daily. Repeat abdominal x-ray tomorrow to check the fecal load. The rest of the care as per primary team. I thank Dr. Adams for allowing me to participate in the care of this patient. Gavin Lane MD [facility]/MODL /[id number]
[2019-08-07 05:57] LABS: BASOPHILS % 0.3 % (0.0-1.0); HEMATOCRIT 30.8 % (34.2-44.1); HEMOGLOBIN 8.9 g/dL (12.0-16.0); LYMPHOCYTES # (AUTO) 0.6 (1.0-3.2); MEAN CORPUSCULAR HEMOGLOBIN 25.5 pg (28-32); MEAN CORPUSCULAR HGB CONC 28.9 g/dL (31-35); MEAN CORPUSCULAR VOLUME 88.3 fL (81-99); MONOCYTES # (AUTO) 0.8 (0.2-0.8); MONOCYTES % 6.8 % (4.4-11.3); NEUTROPHILS # (AUTO) 9.8 (2.1-6.9); PLATELET COUNT 200 x10e3/uL (140-360); RED BLOOD COUNT 3.49 x10e6/uL (3.6-5.1); RED CELL DISTRIBUTION WIDTH 19.9 % (11.7-14.4)
[2019-08-07] MEDS: PIPER-TAZ 3.375 GM 50 ML IV SCH (05:58)
[2019-08-07 06:01] LABS: ALBUMIN 2.6 g/dL (3.5-5.0); ALBUMIN/GLOBULIN RATIO 0.9 (0.8-2.0); ALKALINE PHOSPHATASE 48 IU/L (40-150); ANION GAP 19.9 mmol/L (8-16); BLOOD UREA NITROGEN 44 mg/dL (7-26); BUN/CREATININE RATIO 29 (6-25); CALCIUM 8.2 mg/dL (8.4-10.2); CARBON DIOXIDE 22 mmol/L (22-29); CHLORIDE 107 mmol/L (98-107); EST GLOMERULAR FILTRATION RATE 33 ML/MIN (60-); GLUCOSE 74 mg/dL (74-118); SODIUM 146 mmol/L (136-145)
[2019-08-07 06:04] LABS: ALANINE AMINOTRANSFERASE < 6 IU/L (0-55); POTASSIUM 2.9 mmol/L (3.5-5.1)
[2019-08-07 08:04] LABS: BAND NEUTROPHILS % (MANUAL) 3 %; LYMPHOCYTES % (MANUAL) 8 % (19-48); MONOCYTES % (MANUAL) 4 % (3.4-9.0); NEUTROPHILS % (MANUAL) 85 % (40-74); RBC MORPHOLOGY COMMENT ABNORMAL
[2019-08-07 08:05] LABS: ANISOCYTOSIS SLIGHT; HYPOCHROMASIA MODERATE; PLATELET ESTIMATE ADEQUATE; PLATELET MORPHOLOGY COMMENT NORMAL
[2019-08-07] MEDS: LISINOPRIL 2.5 MG TAB PO SCH (09:00)
[2019-08-07] MEDS ORDERED: POTASSIUM CHLORIDE 20 MEQ TAB CR PO SCH (09:00)
[2019-08-07] MEDS: CARVEDILOL 3.125 MG TAB PO SCH ×2 (09:36→16:50)
[2019-08-07] MEDS: FAMOTIDINE 20 MG/2 ML VIAL IV SCH (09:36)
[2019-08-07] MEDS: POLYETHYLENE GLYCOL 3350 17 GM PACK PO SCH ×2 (09:36→16:51)
--- NOTE | 2019-08-07 12:15 | Diagnostic Imaging Report ---
Exam: Abdominal film Clinical History: Fecal load Comparison: 08/06/2019 DISCUSSION: Limited exam due to motion artifact. Enteric tube is not definitively identified and may have been removed area unchanged mild dilatation of several loops of small bowel. Postsurgical changes of the proximal right femur. Regional skeletal structures intact. Left common iliac arterial stent. IMPRESSION: Stable bowel gas pattern relative to 08/06/2019 accounting for differences in technique. Signed by: Dr. Grant Coto M.D. on 08/07/2019 12:12 PM
--- NOTE | 2019-08-07 13:45 | NUR ---
Pt with SIRS alert trigger with current changes. HR 107- 112, RR 22, temp to 99.3. The pt remains mildly confused as has been entire shift, he denies c/o abdominal pain, no distention to abdomen. Pt is only getting to 500 on the IS today and was achieving 1000 yesterday. Pt has declined PT with reported weakness. Repeat labs unremarkable. Have spoken with Dr Sandhu who gave an order to remove the NGT. Co worker Charlee Urena RN spoke with Dr Sales who has declined for SIRS work up. Addendum: 08/07/19 at 2025 by Timi Gamez RN Disregard this note. This is documented on wrong patient.
--- NOTE | 2019-08-07 13:47 | Diagnostic Imaging Report ---
Examination: Single AP view of the chest. COMPARISON: CT chest 08/05/2019 chest radiograph 08/05/2019 INDICATION: CHF DISCUSSION: Lungs are well-inflated. No appreciable interval change in diffuse perihilar interstitial opacities and bilateral pleural effusions. Stable enlargement of the cardiac silhouette with postsurgical changes of the mediastinum. No acute osseous abnormalities. Degenerative changes of the shoulder girdles. Surgical clips project over the lower cervical region. IMPRESSION: No significant interval change in pulmonary edema and small bilateral pleural effusions relative to 08/05/2019. Signed by: Dr. Grant Coto M.D. on 08/07/2019 1:44 PM
--- NOTE | 2019-08-07 14:48 | Progress Note ---
DATE: SUBJECTIVE: The patient had an enema and some GoLYTELY yesterday. She started moving her bowels. She still has some abdominal distention, but it has decreased. Her breathing is improved and she is on nasal cannula. PHYSICAL EXAMINATION: VITAL SIGNS: The patient is afebrile. The blood pressure is 118/51, and saturation is 100% on 3 L. The pulse is 77. HEENT: Shows no facial swelling or erythema. CARDIAC: Reveals a regular rate and rhythm with normal S1, S2. LUNGS: Auscultation of lungs reveals clear breath sounds bilaterally. There is no wheezing. ABDOMEN: Soft. There is mild distention. EXTREMITIES: There is no leg edema or calf tenderness. There is no cyanosis or clubbing. SKIN: Shows no rashes. NEUROLOGICAL: Shows no focal abnormalities. LABORATORY DATA: Potassium is 2.9 and the BUN to creatinine ratio is 44 to 1.5. White blood cell count is 11.4 and hemoglobin is 8.9. The platelet count is 200. IMPRESSION: 1. Fecal impaction with abdominal distention and discomfort. 2. Stercoral ulcer. 3. Bkrch-lf-ojrujpu systolic congestive heart failure. 4. Acute kidney injury. 5. Hypokalemia. PLAN: 1. Continue current bowel regimen. 2. Continue current cardiac regimen and await completion of Cardiology evaluation. 3. Cultures are negative and there is no clear source of infection. Therefore, we will hold antibiotics. 4. Discontinue Herring. 5. Out of bed as tolerated. Elias Adams MD [facility]/LIZETH /[id number]
[2019-08-07] MEDS ORDERED: PEG (High)/E-LYTE SOLN 4,000 ML BTL PO ONE (15:00)
[2019-08-07] MEDS: MINERAL OIL 16OZ PO SCH ×2 (16:06→20:34)
[2019-08-07] MEDS: FAMOTIDINE 20 MG TAB PO SCH (16:51)
[2019-08-07] MEDS ORDERED: FUROSEMIDE 40 MG TAB PO ONE (17:00)
--- NOTE | 2019-08-07 17:00 | NUR ---
Dr Evelio Adams notifed of decreased urine output. A one time dose of po lasix was ordered.
[2019-08-07] MEDS ORDERED: LORAZEPAM 0.5 MG TAB PO ONE (18:30)
[2019-08-07] MEDS: MELATONIN 5 MG TABLET PO SCH (20:34)
[2019-08-07] MEDS: ATORVASTATIN 10 MG TAB PO SCH (20:34)
[2019-08-07] MEDS: SENNA-S TABLET PO SCH (20:34)
[2019-08-07] MEDS: SERTRALINE HCL 50 MG TAB PO SCH (20:34)
--- NOTE | 2019-08-07 21:52 | NUR ---
patient had 2x liquid bowel movement, still confused and agitated at times. changed patients linens, bed alarm is on, will continue to monitor.
[2019-08-07] MEDS: HYDROCODONE/APAP 5MG-325MG TAB PO PRN (22:40)
[2019-08-08] VITALS (13 sets, daily range): BP systolic 70–181; BP diastolic 49–91
--- NOTE | 2019-08-08 01:10 | Consultation ---
DATE OF CONSULTATION: 08/07/2019 Cardiology Consultation Thank you, Dr. Elias Adams, for this Cardiology Consultation. DIAGNOSES: 1. Acute on chronic congestive heart failure. 2. Mental confusion, possible dementia. 3. Possible coronary artery bypass surgery patient had midsternal scar noted, but no history obtained at this time. 4. History of some ventral hernia surgery done as scar noted to the abdomen as a ventral hernia noted. 5. Left above knee amputation, possible peripheral artery disease. The patient is from senior living and she is brought in from senior living at this time most of the information obtained from the chart and from the nurse's note and some are the patient able to give but the patient is incoherent when she talks. She is from [facility]. The patient came here with some few shortness of breath and confusion. She is 84-year-old female, but she speaks sometimes [place]ian language also but very hard to get much history. She is known patient with chronic congestive heart failure and the patient other medications include levothyroxine, she does have hyperthyroidism and the patient's chest x-ray shows bilateral small pleural effusion. Mild cardiac enlargement without pulmonary edema. CAT scan of the abdomen and pelvis and chest shows no pulmonary embolus. Small to mild right pleural effusion noted. Heart is slightly enlarged and abdomen does not show any acute changes except possible constipation. LABORATORY EVALUATION: Shows the patient has a hemoglobin 10.2 g percent, and WBC count on 15 is 11,400 per cubic millimeter, platelets are 292,000 per cubic millimeter. BUN is 29, creatinine 1.06 with a GFR of 49 mL/minute. Glucose is 95 mg%. Troponins on the 14 one is normal, another is borderline high. At this time, clinical examination does not reveal any clinical congestive heart failure, short heart murmur noted at the area. The patient has some drifting of the left arm as she raises it, otherwise, the right arm and right leg are normal. Left, she has bony amputation. No pedal edema. Decreased pulses and dorsalis pedis are noted and at this time echo ejection fraction about 25%. I will review the echocardiogram. BNP is 3835 pg/mL, and the patient at this time is getting IV antibiotic and Zosyn for possible some sepsis. OTHER MEDICATIONS: Include the following, which include losartan and levothyroxine, and clopidogrel 75 mg once a day, atorvastatin 10 mg once a day, aspirin 81 mg once a day and other vitamins and sertraline are also noted. The patient is also on carvedilol 3.125 mg p.o. b.i.d. She is adequately covered for antibiotics and also possible infections getting antibiotics. EKG does not show acute ischemic changes. I do not think she had an MO showed any troponin leak. IMPRESSION: 1. Acute on chronic congestive heart failure, but at this time, chronic heart failure status. 2. Possible coronary artery bypass surgery, looking at the midline scar, but I do not have any history obtained on this. 3. Dementia and mild confusion. 4. Left arm weakness. 5. Possible sepsis. However, the patient quite appears to be normal, started on antibiotics. At this time, the patient is quite stable cardiacwise. There is no need for further cardiac evaluation and I will continue to follow the patient cardiac point of view, the patient did not have any myocardial infarction. Thank you again for this consultation. MD DELFINO [facility]/LIZETH /[id number]
[2019-08-08] MEDS: LEVOTHYROXINE SODIUM 100 MCG TAB PO SCH (05:54)
[2019-08-08 06:27] LABS: BASOPHILS % 0.4 % (0.0-1.0); EOSINOPHILS # (AUTO) 0.1 (0.0-0.4); EOSINOPHILS % 1.2 % (0.0-6.0); HEMATOCRIT 30.5 % (34.2-44.1); HEMOGLOBIN 8.9 g/dL (12.0-16.0); LYMPHOCYTES # (AUTO) 0.4 (1.0-3.2); LYMPHOCYTES % 4.1 % (18.0-39.1); MEAN CORPUSCULAR HEMOGLOBIN 25.6 pg (28-32); MEAN CORPUSCULAR HGB CONC 29.2 g/dL (31-35); MEAN CORPUSCULAR VOLUME 87.6 fL (81-99); MONOCYTES # (AUTO) 0.6 (0.2-0.8); MONOCYTES % 5.3 % (4.4-11.3); NEUTROPHILS # (AUTO) 9.3 (2.1-6.9); NEUTROPHILS % 88.1 % (38.7-80.0); PLATELET COUNT 179 x10e3/uL (140-360); RED BLOOD COUNT 3.48 x10e6/uL (3.6-5.1); RED CELL DISTRIBUTION WIDTH 19.5 % (11.7-14.4)
[2019-08-08 06:43] LABS: ALBUMIN 2.8 g/dL (3.5-5.0); ALBUMIN/GLOBULIN RATIO 0.9 (0.8-2.0); ANION GAP 20.4 mmol/L (8-16); CALCIUM 8.3 mg/dL (8.4-10.2); CREATININE, SERUM 1.96 mg/dL (0.57-1.11); POTASSIUM 3.4 mmol/L (3.5-5.1)
[2019-08-08] MEDS: HYDROCODONE/APAP 5MG-325MG TAB PO PRN (07:12)
[2019-08-08] MEDS: FAMOTIDINE 20 MG TAB PO SCH ×2 (08:00→17:43)
[2019-08-08] MEDS: ASPIRIN 81 MG ENTERIC COATED PO SCH (08:00)
[2019-08-08] MEDS: CLOPIDOGREL BISULFATE 75 MG TAB PO SCH (08:00)
[2019-08-08] MEDS: POLYETHYLENE GLYCOL 3350 17 GM PACK PO SCH ×2 (08:00→17:43)
[2019-08-08] MEDS: MINERAL OIL 16OZ PO SCH ×3 (08:00→21:00)
[2019-08-08] MEDS: LOSARTAN POTASSIUM 25 MG TAB PO SCH (08:00)
[2019-08-08] MEDS: MULTIVITAMINS/MINERALS TAB PO SCH (08:00)
[2019-08-08] MEDS: PANTOPRAZOLE SOD 40 MG TABEC PO SCH (08:00)
--- NOTE | 2019-08-08 08:45 | NUR ---
spoke w/Dr. Leblanc for new pt consult. waiting for MD carrizales for further orders
[2019-08-08] MEDS ORDERED: POTASSIUM CHLORIDE 20 MEQ TAB CR PO SCH (09:00)
[2019-08-08] MEDS: CARVEDILOL 3.125 MG TAB PO SCH ×2 (09:00→17:54)
[2019-08-08] MEDS: POTASSIUM CHLORIDE 10MEQ EA PO SCH (09:00)
[2019-08-08 09:25] LABS: EOSINOPHILS % (MANUAL) 1 % (0-7); LYMPHOCYTES % (MANUAL) 5 % (19-48); MONOCYTES % (MANUAL) 5 % (3.4-9.0); NEUTROPHILS % (MANUAL) 89 % (40-74); PLATELET ESTIMATE ADEQUATE; PLATELET MORPHOLOGY COMMENT NORMAL; RBC MORPHOLOGY COMMENT NORMAL
--- NOTE | 2019-08-08 17:23 | Progress Note ---
DATE: SUBJECTIVE: Creatinine was increased to 1.7 this morning. She still has some urine output. She is not complaining of dyspnea. She has less abdominal distention. PHYSICAL EXAMINATION: VITAL SIGNS: The patient is afebrile. The blood pressure is 124/59. HEENT: Shows no facial swelling or erythema. CARDIAC: Reveals regular rate and rhythm with normal S1, S2. There are no murmurs or rubs heard. LUNGS: Auscultation of lungs reveals clear breath sounds bilaterally. There is no wheezing. ABDOMEN: Mildly distended. It is soft. EXTREMITIES: There is no leg edema. LABORATORY DATA: White blood cell count is 10.6 and hemoglobin is 8.9. The platelet count is 179. The BUN to creatinine ratio is . The potassium is 3.4. IMPRESSION: 1. Tpcpc-lo-grrbwbs systolic congestive heart failure. 2. Aaozi-zk-fotqusg kidney injury. 3. Fecal impaction with abdominal distention. 4. Hypokalemia. PLAN: 1. Await Nephrology consultation. 2. Continue current cardiac regimen. 3. Out of bed as tolerated. 4. Physical therapy. Elias Adams MD [facility]/JESSEL /[id number]
[2019-08-08] MEDS ORDERED: SODIUM CHLORIDE 0.9% 1000ML 1,000 ML IV SCH (17:30)
[2019-08-08] MEDS ORDERED: DIATRIZOATE MEGL/DIATRIZOA SOD 30 ML BTL PO ONE (17:40)
--- NOTE | 2019-08-08 20:00 | NUR ---
TO CT WITH PATIENT, PATIENT AWAKE AND ALERT BUT CONFUSED. REPEATEDLY ASKING FOR WATER AND/OR ICE, REMINDED EACH TIME THAT SHE IS NPO FOR CT SCAN
--- NOTE | 2019-08-08 20:30 | NUR ---
AT BEDSIDE TO GIVE PATIENT PO MEDS WHEN PATIENT BECAME UNRESPONSIVE AND SEVERELY BRADYCARDIC PER MONITOR. RAPID RESPONSE CALLED, PATIENT BECAME PULSELESS AND CODE NICKOLAS CALLED, CPR STARTED AND BVM VENTILATION INITIATED. PO MEDS WERE NOT GIVEN. SEE CODE BLUE SHEET FOR FURTHER DETAILS
[2019-08-08] MEDS ORDERED: PROPOFOL IV EMULSION 10MG/ML 100 ML ONE (20:34)
[2019-08-08] MEDS: ATORVASTATIN 10 MG TAB PO SCH (21:00)
[2019-08-08] MEDS: SENNA-S TABLET PO SCH (21:00)
[2019-08-08] MEDS: SERTRALINE HCL 50 MG TAB PO SCH (21:00)
[2019-08-08] MEDS: MELATONIN 5 MG TABLET PO SCH (21:00)
[2019-08-08] MEDS ORDERED: SODIUM CHLORIDE 0.9% 1000ML 1,000 ML ONE (21:03)
[2019-08-08] MEDS ORDERED: SODIUM CHLORIDE 0.9% 250ML 0 ML ONE (21:07)
[2019-08-08] MEDS ORDERED: EPINEPHRINE HCL SYRINGE ONE (21:07)
--- NOTE | 2019-08-08 22:00 | Diagnostic Imaging Report ---
EXAM: CT Abdomen and Pelvis WITHOUT contrast INDICATION: Fecal impaction COMPARISON: abdominal CT 08/05/2019 TECHNIQUE: Abdomen and pelvis were scanned utilizing a multidetector helical scanner from the lung base to the pubic symphysis without administration of IV contrast. Absence of intravenous contrast decreases sensitivity for detection of focal lesions and vascular pathology. Coronal and sagittal reformations were obtained. Routine protocol was performed. IV CONTRAST: None ORAL CONTRAST: Gastrografin COMPLICATIONS: None RADIATION DOSE: Total DLP: 425 mGy*cm Estimated effective dose: (DLP x 0.015 x size factor) mSv CTDIvol has been reviewed. It is below the limits set by the Radiation Protocol Committee (RPC). Dose modulation, iterative reconstruction, and/or weight based adjustment of the mA/kV was utilized to reduce the radiation dose to as low as reasonably achievable. FINDINGS: LINES and TUBES: Urinary bladder Herring catheter in place, tip in the bladder lumen.. LOWER THORAX: Moderate bilateral pleural effusions and bibasilar atelectasis. Triple vessel coronary artery calcific atherosclerosis. Her cardiomegaly. Low density blood flow within the left ventricle cavity. Small sliding gastric hiatal hernia. HEPATOBILIARY: No focal hepatic lesions. No biliary ductal dilation. GALLBLADDER: Hyperdense layering gallbladder contents, likely stones and/or sludge and/or excreted contrast. Trace pericholecystic fluid. SPLEEN: No splenomegaly. PANCREAS: No focal masses or ductal dilatation. ADRENALS: No adrenal nodules KIDNEYS/URETERS: No hydronephrosis. No solid mass lesions. No stones. A 2.8 cm left renal inferior pole cyst.. GI TRACT: The previous large volume of stool in the rectum and distal colon has been evacuated minimal stool in the colon. Wall thickening of the sigmoid colon and rectum. No abnormal distention or evidence of bowel obstruction. Appendix is not clearly identified. There is however no fat stranding or adenopathy in the right lower quadrant to suggest appendicitis. PELVIC ORGANS/BLADDER: Hysterectomy. No adnexal masses. Urinary bladder is underdistended with urinary bladder Herring catheter in place, trace air in the bladder lumen. LYMPH NODES: No lymphadenopathy. VESSELS: Extensive vascular calcifications with surgical changes of partially visualized femoral-popliteal grafts. PERITONEUM / RETROPERITONEUM: Trace ascites. No free air. BONES: Partially visualized sternotomy fixation wires appear intact. Healed bilateral lower posterior rib fractures.. Degenerative changes in the spine hips and pelvis. Partially visualized right proximal femoral fixation hardware. Low bone mineral density. SOFT TISSUES: Multiple fat-containing upper abdominal ventral hernias. Small fat and bowel containing right lower abdominal hernia without evidence of obstruction or strangulation. There is diffuse anarsarca. IMPRESSION: Resolution of fecal impaction, with persistent findings of uncomplicated coloproctitis. Persistent volume overload with moderate bilateral pleural effusions, anasarca, and trace ascites, with moderate cardiomegaly. CT findings of anemia. Signed by: Nish Siegel DO on 08/08/2019 9:57 PM
--- NOTE | 2019-08-08 22:13 | Diagnostic Imaging Report ---
EXAM: Abdomen Radiograph 1 View INDICATION: Enteric tube placement, verify position COMPARISON: None FINDINGS: New enteric tube, tip projects in the right upper abdomen. ET tube tip projects at the level of the vannesa. Bibasilar thoracic haziness is likely due to pleural effusions. Mild cardiomegaly. Mild gaseous distention of included colonic loops. No dilated loops of small bowel. No abnormal abdominal calcifications.. No abnormal soft tissue masses. No pneumoperitoneum. No acute osseous abnormality. Sternotomy wires intact. Mild degenerative changes in the lumbar spine and pelvis. IMPRESSION: New enteric tube, tip projects in the right upper abdomen, likely within the distal gastric lumen. Partially visualized ET tube projects at the level of the vannesa, recommend chest x-ray to evaluate for ET tube position. Mild cardiomegaly and pleural effusions. Signed by: Nish Siegel DO on 08/08/2019 10:10 PM
--- NOTE | 2019-08-08 22:23 | Diagnostic Imaging Report ---
EXAMINATION: CHEST SINGLE (PORTABLE) INDICATION: Intubated, verify position COMPARISON: abdominal CT 08/08/2019 FINDINGS: TUBES and LINES: The ET tube tip is at the right mainstem bronchus origin. Enteric tube courses into the abdomen into the right upper abdomen, tip out of field of view. LUNGS/PLEURA: Normal right lung volume. Opacification of the left mid/lower lung. No pneumothorax. HEART AND MEDIASTINUM: Cardiac size is mildly enlarged. There are atherosclerotic calcifications within the aorta. BONES AND SOFT TISSUES: No acute osseous lesion. Sternotomy wires intact. Surgical clips in the right neck. Degenerative changes in the spine and shoulders. UPPER ABDOMEN: No free air under the diaphragm. IMPRESSION: The ET tube tip is at the right mainstem bronchus origin, consider 3 cm retraction. Opacification of the left lung base can be due to pleural effusion or atelectasis/collapse. Mild cardiomegaly. ET tube finding discussed with Dr. Adams at 10:17 PM on 08/08/[address] Siegel via telephone. Signed by: Nish Siegel DO on 08/08/2019 10:21 PM
[2019-08-08] MEDS ORDERED: PROPOFOL IV EMULSION 10 MG/ML 20 ML VIAL IV PRN (22:30)
[2019-08-08 22:51] LABS: ABG HCO3 17 mmol/L (23-28); ABG PCO2 39 mmHg (41-51); ABG PH 7.25 (7.31-7.41); ABG PO2 52 mmHg (80-105)
[2019-08-08] MEDS ORDERED: SODIUM BICARBONATE 8.4% SYRING 100 ML ONE (23:00)
[2019-08-08] MEDS ORDERED: DEXTROSE 5% 1,000 ML IV ONE (23:00)
--- NOTE | 2019-08-08 23:00 | NUR ---
able seaman visited the patient and family members. Patient was very active in the pentecostal in the past and family also expressed strong carleen in God . Telecommunications Engineer validated their carleen in God and provided compassionate presence , supportive listening, end of life pastoral support , education on end of life. Telecommunications Engineer also employed scripture and prayer and pastoral comfort and anticipatory grief support . Family expressed grief and accepting impending of the patient. Pt appeared comfortable , able seaman facilitated end of life discussion with medical team . family expressed more acceptance and peace and family was expressed great apprication for able seaman support and presence , day able seaman will follow up chaplain Gutierrez
--- NOTE | 2019-08-08 23:00 | NUR ---
DR Mara HUNTER HAS BEEN IN TO SEE PATIENT AND DISCUSS TREATMENT PLAN/PROGNOSIS WITH FAMILY. RIGHT IJ CENTRAL LINE PLACED FOR VASOPRESSOR USE. PARTNER MANAGER ALSO CAME TO MEET WITH PATIENT FAMILY AND PROVIDE SPIRITUAL SUPPORT
--- NOTE | 2019-08-08 23:04 | Consultation ---
DATE OF CONSULTATION: REASON FOR CONSULT: Acute kidney failure. HISTORY OF PRESENT ILLNESS: This is an 84-year-old female, who was admitted secondary to shortness of breath, decompensated heart failure, and pulmonary edema. The patient was receiving diuresis. PAST MEDICAL HISTORY: Include: 1. Hypothyroidism. 2. Congestive heart failure. 3. Coronary artery disease. 4. Hyperlipidemia. 5. Hypertension. 6. GERD. 7. Abdominal ventral hernia. 8. Congestive heart failure with ejection fraction of 24%. 9. Hypothyroidism. 10. Peripheral vascular disease. 11. ? CVA. PAST SURGICAL HISTORY: Surgical scar on abdomen and left AKA. FAMILY HISTORY: Noncontributory. SOCIAL HISTORY: No smoking. No alcohol. No drugs. ALLERGIES: NO KNOWN DRUG ALLERGIES. CURRENT MEDICATIONS: Include: 1. Atorvastatin. 2. Levothyroxine. 3. Protonix. 4. Carvedilol. 5. Sertraline. 6. Plavix. 7. Melatonin. 8. Mineral oil. 9. Aspirin. 10. Famotidine. 11. Multivitamin,. 12. Potassium 40 mEq every day. 13. Albuterol. 14. Ambien. REVIEW OF SYSTEMS: Positive lower abdominal pain. No shortness of breath. Currently, she is flat in bed. No chest pain. No coughing. No changes in vision. No changes in hearing. No sensory loss. No motor loss. No skin changes. REVIEW OF SYSTEMS: No other review of systems is available from the patient at this time, but she is thirsty. Denies any changes on skin. PHYSICAL EXAMINATION: VITAL SIGNS: Blood pressure 112/57, pulse 63. GENERAL: The patient is alert, following commands. HEENT: Pupils are equal and reactive to light and accommodation. NECK: No JVD. No bruits. LUNGS: Rhonchi. No rales. HEART: Regular rate and rhythm. No S3. No S4. ABDOMEN: Positive ventral hernia, past surgical scarring. EXTREMITIES: No clubbing, no cyanosis, no edema, status post AKA. NEUROLOGIC: The patient with facial droop, cannot move her face on the left side. Not available in history if the patient has a CVA or she had a facial nerve palsy. LABORATORY DATA: White count 10.58, hemoglobin 8.9, hematocrit 30.5, platelets adequate. PH 7.4 upon admission, pCO2 of 37. Sodium 144, potassium 2.4, chloride 107. Creatinine 1.96, BUN 54. Upon admission, creatinine was 1.06 on 08/06; on 08/07, 1.5; on 08/08, 1.96. BNP 3835 on 08/07. Albumin 2.8. CT chest and abdomen was done with IV contrast demonstrated bilateral [id number] volume pleural effusion. No pulmonary embolism. Moderate cardiomegaly with mild bilateral pulmonary edema, ulcers, stercoral colitis, and fecal impaction with large volume of stool within the colon. Chest x-ray yesterday, no interval changes in pulmonary edema and small bilateral pleural effusion. ASSESSMENT AND PLAN: Acute kidney failure, most likely contrast nephropathy secondary to IV contrast. The timing is consistent with that, but the patient also have probably some chronic kidney disease, so at this time, workup is in progress. We will check fractional excretion of sodium, urine eosinophil, urine protein electrophoresis since the patient is also anemic at this time to see if there are other reasons. At this time also with initial low rate normal saline since the patient has congestive heart failure of 24%. Diuretics were stopped secondary to increased creatinine. So in short, acute tubular necrosis, most likely contrast nephropathy, diuresis stopped. Saline started at a lower rate. Medications are all adjusted to renal function. According to nursing staff, family is not interested in dialysis. If it gets to that, we will contact the family to explain her case at this time. So far, dialysis is not needed. Jose Leblanc MD MA/LIZETH /[id number]
[2019-08-08] MEDS: SODIUM BICARBONATE 8.4% SYRING 100 ML in DEXTROSE 5% 1,000 ML IV SCH (23:06)
[2019-08-08 23:38] LABS: BASOPHILS % 0.4 % (0.0-1.0); EOSINOPHILS % 0.3 % (0.0-6.0); HEMATOCRIT 33.5 % (34.2-44.1); HEMOGLOBIN 9.4 g/dL (12.0-16.0); LYMPHOCYTES # (AUTO) 0.4 (1.0-3.2); LYMPHOCYTES % 3.3 % (18.0-39.1); MEAN CORPUSCULAR HEMOGLOBIN 25.5 pg (28-32); MEAN CORPUSCULAR HGB CONC 28.1 g/dL (31-35); MONOCYTES # (AUTO) 0.3 (0.2-0.8); MONOCYTES % 2.5 % (4.4-11.3); NEUTROPHILS # (AUTO) 10.2 (2.1-6.9); NEUTROPHILS % 91.5 % (38.7-80.0); PLATELET COUNT 224 x10e3/uL (140-360); RED BLOOD COUNT 3.68 x10e6/uL (3.6-5.1); RED CELL DISTRIBUTION WIDTH 19.2 % (11.7-14.4)
[2019-08-09] VITALS (31 sets, daily range): BP systolic 73–135; BP diastolic 45–82
[2019-08-09 00:03] LABS: ANION GAP 22.2 mmol/L (8-16); CALCIUM 8.7 mg/dL (8.4-10.2); CREATININE, SERUM 2.31 mg/dL (0.57-1.11); POTASSIUM 4.2 mmol/L (3.5-5.1)
--- NOTE | 2019-08-09 00:09 | Operative Report ---
DATE OF PROCEDURE: SURGEON: Elias Adams MD PROCEDURE: Central line placement under ultrasound guidance. INDICATION: Respiratory failure, bradycardia, and cardiopulmonary arrest. CONSENT: Consent was obtained from the family. ANESTHESIA: 1% lidocaine for local anesthesia. DESCRIPTION OF PROCEDURE: The patient was placed in a supine position. The right neck was prepped sterilely with chlorhexidine. A full-length drape, sterile gown, mask, and sterile gloves were used. The right internal jugular vein was located using an ultrasound machine. There was no intraluminal thrombosis or obstruction. The vein was then cannulated with a 16-gauge needle under direct visualization. A wire was placed through the needle. The dilator was then placed over the wire and a triple-lumen catheter was subsequently placed over the wire by the Seldinger technique. All the ports flushed. COMPLICATIONS: None. ESTIMATED BLOOD LOSS: None. Elias Adams MD LMH/MODL /[id number]
--- NOTE | 2019-08-09 00:25 | Diagnostic Imaging Report ---
EXAMINATION: CHEST XRAY LINE PLACEMENT INDICATION: Central line placement, verify position. COMPARISON: Chest x-ray 08/08/2019 21:07 PM FINDINGS: TUBES and LINES: New right IJ central venous catheter, tip in the superior cavoatrial junction. Slight interval retraction of the ET tube, tip in the low intrathoracic trachea, 2 cm above vannesa. ET tube tip courses into abdomen, tip out of field of view. LUNGS/PLEURA: Normal lung volumes. Persistent left mid/lower lung opacification. Perihilar haziness. No pneumothorax. HEART AND MEDIASTINUM: The cardiomediastinal silhouette is unremarkable. BONES AND SOFT TISSUES: Unchanged. UPPER ABDOMEN: No free air under the diaphragm. IMPRESSION: Lines and tubes as above. Left mid/lower lung lower lung opacification can be due to pleural effusion or atelectasis/collapse. Mild cardiomegaly, perihilar haziness is likely due to pulmonary edema.. Signed by: Nish Siegel DO on 08/09/2019 12:23 AM
--- NOTE | 2019-08-09 00:45 | NUR ---
SPOKE WITH GRANDDAUGHTER (ROSA) AND WITH DR Mara HUNTER REGARDING PATIENT CURRENT STATUS
[2019-08-09 01:41] LABS: ABG HCO3 20 mmol/L (23-28); ABG PCO2 35 mmHg (41-51); ABG PH 7.37 (7.31-7.41); ABG PO2 108 mmHg (80-105)
--- NOTE | 2019-08-09 01:41 | NUR ---
ABG RESULTS CALLED TO DR Mara HUNTER, NO NEW ORDERS
[2019-08-09] MEDS ORDERED: VANCOMYCIN 1GM/NS 250 ML 250 ML IV ONE (04:30)
[2019-08-09 04:33] LABS: INR 1.32; PROTHROMBIN TIME 17.3 seconds (11.9-14.5)
[2019-08-09 04:34] LABS: PARTIAL THROMBOPLASTIN TIME 56.9 seconds (23.8-35.5)
[2019-08-09 04:39] LABS: CREATINE KINASE MB 3.8 ng/mL (0-5.0)
[2019-08-09] MEDS: AZITHROMYCIN 500MG/NS 250 ML 250 ML IV SCH (05:07)
[2019-08-09 05:21] LABS: BASOPHILS % 0.3 % (0.0-1.0); EOSINOPHILS % 0.3 % (0.0-6.0); HEMATOCRIT 32.5 % (34.2-44.1); HEMOGLOBIN 9.6 g/dL (12.0-16.0); LYMPHOCYTES # (AUTO) 0.6 (1.0-3.2); LYMPHOCYTES % 5.2 % (18.0-39.1); MEAN CORPUSCULAR HEMOGLOBIN 25.7 pg (28-32); MEAN CORPUSCULAR HGB CONC 29.5 g/dL (31-35); MEAN CORPUSCULAR VOLUME 87.1 fL (81-99); MONOCYTES # (AUTO) 0.5 (0.2-0.8); MONOCYTES % 4.2 % (4.4-11.3); NEUTROPHILS # (AUTO) 9.8 (2.1-6.9); NEUTROPHILS % 89.3 % (38.7-80.0); PLATELET COUNT 210 x10e3/uL (140-360); RED BLOOD COUNT 3.73 x10e6/uL (3.6-5.1); RED CELL DISTRIBUTION WIDTH 19.1 % (11.7-14.4)
[2019-08-09 05:47] LABS: CREATINE KINASE MB 22.2 ng/mL (0-5.0)
[2019-08-09 05:52] LABS: CREATININE,URINE RANDOM 41.03 mg/dL (47-110); SODIUM,URINE 46 mmol/L
[2019-08-09] MEDS: LEVOTHYROXINE SODIUM 100 MCG TAB PO SCH (06:00)
[2019-08-09] MEDS: CEFEPIME 1GM/NS 0.9% 50 ML 50 ML IV SCH ×3 (06:09→21:51)
[2019-08-09 06:15] LABS: ALBUMIN 2.5 g/dL (3.5-5.0); ALBUMIN/GLOBULIN RATIO 0.9 (0.8-2.0); ANION GAP 18.9 mmol/L (8-16); CALCIUM 8.8 mg/dL (8.4-10.2); CREATININE, SERUM 2.5 mg/dL (0.57-1.11); POTASSIUM 3.9 mmol/L (3.5-5.1)
[2019-08-09 06:22] LABS: TOTAL PROTEIN, URINE 408.2 mg/dL (1-14)
[2019-08-09 06:25] LABS: EOSINOPHIL SMEAR,URINE NONE SEEN (NONE SEEN)
[2019-08-09] MEDS ORDERED: NOREPINEPHRINE 8 MG/D5W 250 ML 250 ML ONE (06:45)
[2019-08-09 07:00] LABS: EOSINOPHILS % (MANUAL) 1 % (0-7); LYMPHOCYTES % (MANUAL) 5 % (19-48); MONOCYTES % (MANUAL) 2 % (3.4-9.0); NEUTROPHILS % (MANUAL) 92 % (40-74)
[2019-08-09] MEDS: NOREPINEPHRINE INJ 4MG/4ML 8 MG in DEXTROSE 5% 250ML 250 ML IV PRN (07:00)
[2019-08-09 07:01] LABS: PLATELET ESTIMATE ADEQUATE; PLATELET MORPHOLOGY COMMENT NORMAL; RBC MORPHOLOGY COMMENT NORMAL
--- NOTE | 2019-08-09 07:02 | NUR ---
Consult called for Dr. Loya, he will see patient today
[2019-08-09] MEDS ORDERED: FUROSEMIDE INJ 10 MG/ML 4 ML VIAL IV ONE (08:15)
[2019-08-09] MEDS: ASPIRIN 81 MG ENTERIC COATED PO SCH (08:22)
[2019-08-09] MEDS: CLOPIDOGREL BISULFATE 75 MG TAB PO SCH (08:23)
[2019-08-09] MEDS: MULTIVITAMINS/MINERALS TAB PO SCH (08:23)
[2019-08-09] MEDS: FAMOTIDINE 20 MG TAB PO SCH ×2 (08:23→16:08)
[2019-08-09] MEDS: PANTOPRAZOLE SOD 40 MG TABEC PO SCH (08:23)
[2019-08-09] MEDS: CARVEDILOL 3.125 MG TAB PO SCH (08:24)
[2019-08-09] MEDS: LOSARTAN POTASSIUM 25 MG TAB PO SCH (08:25)
[2019-08-09] MEDS: POTASSIUM CHLORIDE 10MEQ EA PO SCH (08:27)
[2019-08-09] MEDS: MINERAL OIL 16OZ PO SCH ×3 (08:30→20:44)
[2019-08-09] MEDS: POLYETHYLENE GLYCOL 3350 17 GM PACK PO SCH ×2 (08:30→16:08)
[2019-08-09] MEDS: HEPARIN SOD (PORCINE) 5,000 UNIT/ML VIAL SC SCH ×2 (08:36→20:46)
--- NOTE | 2019-08-09 09:19 | Diagnostic Imaging Report ---
EXAM: Renal Ultrasound INDICATION: ^Elevated creatinine COMPARISON: CT abdomen and pelvis 08/08/2019 TECHNIQUE: Transverse and longitudinal images of the kidneys and bladder were obtained. FINDINGS: Right Kidney: Size: 10.5 cm Echogenicity: Increased Parenchymal thickness: Normal Collecting system: No hydronephrosis Stones: None Cyst/Mass: None Left Kidney: Size: 9.3 cm Echogenicity: Increased Parenchymal thickness: Normal Collecting system: No hydronephrosis Stones: None Cyst/Mass: Exophytic simple cyst projecting from the lower pole measuring 2.6 cm in maximum diameter. Bladder: Collapsed around a Herring catheter. Incidental note of small volume ascites. The gallbladder is partially collapsed with internal echogenic sludge and mild wall thickening. IMPRESSION: Increased renal cortical echogenicity compatible with medical renal disease. Gallbladder wall thickening may be a consequence of underdistention and underlying liver disease/hypoproteinemia. Dedicated gallbladder ultrasound may be obtained if the patient endorses right upper quadrant pain. Signed by: Dr. Grant Coto M.D. on 08/09/2019 9:17 AM
--- NOTE | 2019-08-09 09:53 | NUR ---
ST NOTE: Pt intubated, will follow pt status and complete BSE 24-48 hours post extubation
--- NOTE | 2019-08-09 10:10 | Diagnostic Imaging Report ---
EXAMINATION: CHEST SINGLE (PORTABLE) INDICATION: Shortness of breath COMPARISON: Chest radiograph 08/08/2019 FINDINGS: LINES/TUBES:Right IJ central venous catheter terminates in the superior vena cava. Endotracheal tube terminates 3 cm above the vannesa. Enteric tube projects below the diaphragm with tip not visualized. EKG leads overlie the chest. LUNGS:The lung volumes are low. There is perihilar fullness and indistinctness of the pulmonary vasculature. There is left basilar opacity silhouetting the left ctilaly diaphragm. PLEURA:Small left pleural effusion. No pneumothorax. MEDIASTINUM:Cardiomediastinal silhouette is stably enlarged. Atherosclerotic calcifications of the thoracic aorta. BONES/SOFT TISSUES:No acute osseous injury. Sternotomy wires in place. Severe degenerative changes of the right acromioclavicular joint. ABDOMEN:No free air under the diaphragm. IMPRESSION: Worsening pulmonary edema and small left pleural effusion. Left basilar airspace opacity, more likely a, patient of airspace edema and atelectasis than superimposed aspiration or pneumonia. Signed by: Dex Yoder MD on 08/09/2019 10:08 AM
--- NOTE | 2019-08-09 10:14 | Diagnostic Imaging Report ---
Exam: KUB - 2 views Indication: Enteric tube placement Comparison: Chest radiograph of the same day Findings: Enteric tube projects below the diaphragm with tip in the proximal duodenum and side port in the distal stomach. Nonobstructive bowel gas pattern. No free air. No acute osseous injury. Degenerative changes of the visualized spine and both hip joints. Status post ORIF of the right proximal femur. Left iliac stent. Impression: NG tube terminates in the proximal duodenum. Signed by: Dex Yoder MD on 08/09/2019 10:12 AM
--- NOTE | 2019-08-09 11:01 | NUR ---
Pt now intubated. Will be placed on PT hold d/t change in status. Will need new PT orders to resume skilled services when appropriate. Thank you. Addendum: 08/09/19 at 1103 by FLORIDALMA BARBER DOUGH MOLDER HAND Amended: Links added.
[2019-08-09 11:25] LABS: ABG HCO3 15 mmol/L (23-28); ABG PCO2 29 mmHg (41-51); ABG PH 7.33 (7.31-7.41); ABG PO2 116 mmHg (80-105)
--- NOTE | 2019-08-09 11:26 | Progress Note ---
DATE: Pulmonary Critical Care Progress Note SUBJECTIVE: The patient had bradycardia and cardiopulmonary arrest yesterday. She required CPR for 16 minutes along with endotracheal intubation. She subsequently had a central line placed and was started on pressors. She received additional fluids and was started on a bicarb drip. She also received antibiotics. This morning, her blood pressure is low again with the blood pressure of 85/50 and she was started on Levophed in addition to the dopamine. Her urine output is kailey. She has minimal urine output overnight and her creatinine is increased. The sedation is held. She does respond. The family is considering withdrawal, but wants to continue with full support at this time. PHYSICAL EXAMINATION: VITAL SIGNS: The blood pressure is 85/50 and the pulse is 89. Saturation is 98%. HEENT: No facial swelling or erythema. There is a right IJ line in good position. The site looks clean. CARDIAC: Reveals a regular rate and rhythm with normal S1 and S2. RESPIRATORY: Auscultation of lungs reveal rhonchorous breath sounds bilaterally. There are some crackles. CARDIAC: Reveals regular rate and rhythm with normal S1 and S2. ABDOMEN: Soft. There is mild abdominal distention. There is no leg edema. The patient is status post left leg amputation. LABORATORY DATA: The BUN to creatinine ratio is increased to 59/2.5 and the carbon dioxide is 21. Troponin I is 12 and BNP is 7129. The white blood cell count is 11, hemoglobin is 9.6, and the platelet count is 210. IMPRESSION: 1. Acute on chronic respiratory failure following cardiopulmonary arrest. 2. Acute on chronic systolic congestive heart failure. 3. Acute renal failure. 4. Aspiration pneumonia. 5. Fecal impaction. PLAN: 1. Continue pressors. 2. Re-evaluation by Cardiology and Nephrology. 3. Continue antibiotics to cover for healthcare-acquired pathogens and aspiration. 4. DVT prophylaxis. 5. Begin enteral feedings. 6. Prognosis is poor. 7. Case discussed with multiple family members last night and again this morning. 8. Case also discussed with Nursing and Respiratory. Greater than 35 minutes in direct critical care time. MD MICKY Presley/LIZETH /[id number]
--- NOTE | 2019-08-09 12:45 | NUR ---
ASSESSMENT: Spiritual concern Pt's family hopeful for recovery. Pt's family at bedside. Pt identifies as Christian. Pt's family requesting daily visits from Social Psychologist. Intervention: Provided empathic listening and unhurried pastoral presence. Provided prayer from Christian tradition. Provided information on how to reach ferry hand, if needed. Outcome: Pt's family expressed appreciation for visit. Will follow as able. MIKE MARIE Social Psychologist Spiritual Care Department O: [phone]
--- NOTE | 2019-08-09 12:46 | NUR ---
Nutrition Intervention Note RD Recommendation(s) for Physician: -TF recommendation when medically feasible and hemodynamically stable: Trickle feeds of Vital HP at 10 ml/hr advance as tolerated and when medically feasible to goal rate of 50 ml/hr with 30 ml of water flushed every 4 hours (1200 kcal, 105 gram protein) -IVF management and additional flushes per MD. -ADAT to cardiac per MD, texture per speech. Plan of Care: RD following, monitoring for tolerance and adequacy. TF recs. Nutrition reason for involvement: TF RD Assessment 08/09: 84 YOF admitted for resp distress with PMH listed below. The pt was seen within the ICU intubated, no sedation. The pt is on 2 pressors (dopamine and levo), current rates are not recorded within EMR. MD ordered Osmolite at 10 ml/hr. Since pt is intubated, recommend Vital at this time. Per MD note- the family is considering withdrawal. Pt was also started on a bicarb drip. Will continue to monitor. Principal Problems/Diagnoses: Resp Distress PMH: 1. Hypothyroidism. 2. Congestive heart failure. 3. Coronary artery disease. 4. Hyperlipidemia. 5. Hypertension. 6. GERD. 7. Abdominal ventral hernia. 8. Congestive heart failure with ejection fraction of 24%. 9. Hypothyroidism. 10. Peripheral vascular disease. 11. ? CVA. GI: Abd: soft, round LBM: 08/08 Skin: no pressure ulcer recorded Labs: 08/09: lactic acid: 2.8, B-Farzana peptide 7128 Meds: abx, dopamine, pepcid, synthroid, M/ with minerals, levo, prtonis, miralax, K-DUR given, senna IVF: Sodium bicarb and D5 at 100 ml/hr (120 gram dex, 408 kcal) Ht: 61 in Wt: 111 lbs BMI: 21.0 kg/m^2 IBW: 105 lbs Malnutrition Evaluation 08/09 Unable to evaluate at this time. Will re-evaluate at follow-up as appropriate. Energy intake: -pt has been on full liquids for 2 days Weight loss: -unable to evaluate Fat loss: unable to evaluate Muscle loss, unable to evaluate Nutrition Prescription (Diet Order): Osmolite 1.2 at 10 ml/hr Estimated Nutritional Needs: Calories:7266-1833 kcal/day (20-25 kcal/kg/day) Weight used : CBW (50 kg) Protein : 65-100 protein/day (1.3-2 gram/kg/day ) Weight used: CBW Diet Adequacy: Not meeting calorie needs, Not meeting protein needs Diet Education Needs Assessment: Diet education not indicated, patient on temporary/transition diet. Nutrition Care Level: mod Nutrition Diagnosis: Inadequate energy intake related to medical condition as evidenced by the pts need for intubation and tube feeding. Goal: Patient will meet 75-100% of estimated needs by follow up Progress: N/A Interventions: Cardiac, -modified diet, Composition, Rate, Route, IVF, Prescription medications, Collaboration with other providers Monitoring/Evaluation: -Total energy intake, Total protein intake, Formula/Solution, IVF, Prescription medication, Modified diet Signed: Florinda Purdy RD, LD
[2019-08-09] MEDS ORDERED: ETOMIDATE 40 MG/ 20ML VIAL IV ONE (14:00)
[2019-08-09] MEDS ORDERED: SUCCINYLCHOLINE CHLORIDE 20 MG/ML 10ML VIAL IV ONE (14:00)
[2019-08-09] MEDS ORDERED: FUROSEMIDE INJ 10 MG/ML 10 ML VIAL IV ONE (14:45)
[2019-08-09] MEDS ORDERED: DOPAmine/D5W 1.6 MG/ML 400 MG/250ML PREMIX IV ONE (15:18)
[2019-08-09] MEDS ORDERED: CALCIUM CHLORIDE 10% 1.36 MEQ/ML 10ML SYR IV ONE (15:18)
[2019-08-09] MEDS ORDERED: SODIUM CHLORIDE FLUSH 10 ML SYR ONE (15:18)
[2019-08-09] MEDS ORDERED: ATROPINE SULFATE 0.1 MG/ML 10ML SYR ONE (15:18)
[2019-08-09] MEDS ORDERED: EPINEPHRINE HCL SYRINGE ONE (15:18)
[2019-08-09] MEDS ORDERED: SODIUM BICARBONATE 8.4% INJ 50 ML SYR ONE (15:18)
[2019-08-09] MEDS: SODIUM BICARBONATE 8.4% SYRING 100 ML in DEXTROSE 5% 1,000 ML IV SCH (15:46)
[2019-08-09] MEDS ORDERED: DEXMEDETOMIDINE HCL 200 MCG in SODIUM CHLORIDE 0.9% 50ML 48 ML IV PRN (16:15)
--- NOTE | 2019-08-09 18:00 | NUR ---
At AM shift change Levophed drip added. Dr. Mara Adams notified of ABG results, orders given to change Bicarb drip rate and give Lasix. Per Dr. Mara Adams pt too unstable at this time for MRI. US of kidney's completed. Central line dressing changed, new dressing CDI. Tube feedings started after x ray verification of tube placement. Dr. Murdock notified of low urine output. discussed possibility of dialysis and code status with family. EEG completed. Will continue to monitor the patient. Addendum: 08/09/19 at 1829 by Elizabeth Paz RN Per Dr. Adams hold off on laxatives at this time.
[2019-08-09 18:28] LABS: BASOPHILS # (AUTO) 0.1 (0.0-0.1); BASOPHILS % 0.4 % (0.0-1.0); EOSINOPHILS # (AUTO) 0.1 (0.0-0.4); EOSINOPHILS % 0.8 % (0.0-6.0); HEMATOCRIT 34.5 % (34.2-44.1); HEMOGLOBIN 10.3 g/dL (12.0-16.0); LYMPHOCYTES # (AUTO) 0.9 (1.0-3.2); LYMPHOCYTES % 5.8 % (18.0-39.1); MEAN CORPUSCULAR HEMOGLOBIN 25.3 pg (28-32); MEAN CORPUSCULAR HGB CONC 29.9 g/dL (31-35); MEAN CORPUSCULAR VOLUME 84.8 fL (81-99); MONOCYTES % 7.1 % (4.4-11.3); NEUTROPHILS # (AUTO) 12.5 (2.1-6.9); NEUTROPHILS % 84.7 % (38.7-80.0); PLATELET COUNT 213 x10e3/uL (140-360); RED BLOOD COUNT 4.07 x10e6/uL (3.6-5.1)
[2019-08-09 18:45] LABS: ANION GAP 17.7 mmol/L (8-16); CALCIUM 8.3 mg/dL (8.4-10.2); CREATININE, SERUM 2.81 mg/dL (0.57-1.11); POTASSIUM 3.7 mmol/L (3.5-5.1)
--- NOTE | 2019-08-09 19:54 | NUR ---
Dr. Mara Adams notified of pt's lab results & fever. No new orders noted.
[2019-08-09] MEDS: ATORVASTATIN 10 MG TAB PO SCH (20:43)
[2019-08-09] MEDS: MELATONIN 5 MG TABLET PO SCH (20:43)
[2019-08-09] MEDS: SENNA-S TABLET PO SCH (20:44)
[2019-08-09] MEDS: SERTRALINE HCL 50 MG TAB PO SCH (20:44)
[2019-08-09] MEDS: ACETAMINOPHEN 325 MG TAB PO PRN (21:02)
--- NOTE | 2019-08-09 23:11 | NUR ---
Temp up to 102.4 despite Tylenol admin 2 hours ago. Ice packs applied. Will recheck. Dr. Mara Adams aware of temp at beginning of shift.
[2019-08-10] VITALS (35 sets, daily range): BP systolic 71–139; BP diastolic 31–59
[2019-08-10] MEDS ORDERED: DEXMEDETOMIDINE 200MCG/NS 50ML 50 ML IV ONE (00:45)
[2019-08-10] MEDS: AZITHROMYCIN 500MG/NS 250 ML 250 ML IV SCH (04:05)
[2019-08-10 05:13] LABS: BASOPHILS # (AUTO) 0.1 (0.0-0.1); BASOPHILS % 0.5 % (0.0-1.0); EOSINOPHILS # (AUTO) 0.2 (0.0-0.4); EOSINOPHILS % 1.8 % (0.0-6.0); HEMATOCRIT 28.8 % (34.2-44.1); HEMOGLOBIN 8.7 g/dL (12.0-16.0); LYMPHOCYTES # (AUTO) 0.6 (1.0-3.2); LYMPHOCYTES % 5.8 % (18.0-39.1); MEAN CORPUSCULAR HGB CONC 30.2 g/dL (31-35); MEAN CORPUSCULAR VOLUME 82.8 fL (81-99); MONOCYTES # (AUTO) 0.4 (0.2-0.8); MONOCYTES % 4.1 % (4.4-11.3); NEUTROPHILS # (AUTO) 9.2 (2.1-6.9); NEUTROPHILS % 84.9 % (38.7-80.0); PLATELET COUNT 183 x10e3/uL (140-360); RED BLOOD COUNT 3.48 x10e6/uL (3.6-5.1); RED CELL DISTRIBUTION WIDTH 18.9 % (11.7-14.4)
[2019-08-10 05:35] LABS: ALBUMIN/GLOBULIN RATIO 0.8 (0.8-2.0); ANION GAP 14.3 mmol/L (8-16); CALCIUM 7.6 mg/dL (8.4-10.2); CREATININE, SERUM 2.96 mg/dL (0.57-1.11); POTASSIUM 3.3 mmol/L (3.5-5.1)
[2019-08-10] MEDS: SODIUM BICARBONATE 8.4% SYRING 100 ML in DEXTROSE 5% 1,000 ML IV SCH (05:38)
[2019-08-10] MEDS: LEVOTHYROXINE SODIUM 100 MCG TAB PO SCH (05:40)
[2019-08-10] MEDS: CEFEPIME 1GM/NS 0.9% 50 ML 50 ML IV SCH ×3 (05:40→22:17)
[2019-08-10] MEDS ORDERED: NOREPINEPHRINE 8 MG/D5W 250 ML 250 ML ONE (05:40)
[2019-08-10] MEDS: NOREPINEPHRINE INJ 4MG/4ML 8 MG in DEXTROSE 5% 250ML 250 ML IV PRN (05:45)
--- NOTE | 2019-08-10 06:30 | Diagnostic Imaging Report ---
EXAMINATION: CHEST SINGLE (PORTABLE) COMPARISON: Chest x-ray 08/09/2019 INDICATION: Intubated ^Resp failure ^[id number] ^0500 DISCUSSION: Frontal view of the chest obtained at 0543 hours. HEART AND MEDIASTINUM: Stable cardiac bypass changes LINES: Endotracheal tube terminates 2-3 7 m above the vannesa. Enteric tube extends past the diaphragm. Right IJ catheter terminates in the SVC LUNGS/PLEURA: Bilateral pleural effusions, left larger than right. Persistent retrocardiac airspace opacity and right basilar atelectasis. No pneumothorax. BONES AND SOFT TISSUES: Stable degenerative changes. The soft tissues are normal. IMPRESSION: 1. Support devices as described above. 2. No change in pleural effusions and atelectasis. Underlying pneumonia cannot be excluded. Signed by: Dr. Carlos Neumann MD on 08/10/2019 6:28 AM
[2019-08-10] MEDS: ASPIRIN 81 MG ENTERIC COATED PO SCH (08:06)
[2019-08-10] MEDS: MINERAL OIL 16OZ PO SCH ×3 (08:06→15:02)
[2019-08-10] MEDS: MULTIVITAMINS/MINERALS TAB PO SCH (08:06)
[2019-08-10] MEDS: POLYETHYLENE GLYCOL 3350 17 GM PACK PO SCH ×2 (08:06→16:12)
[2019-08-10] MEDS: PANTOPRAZOLE SOD 40 MG TABEC PO SCH (08:07)
[2019-08-10] MEDS: FAMOTIDINE 20 MG TAB PO SCH ×2 (08:07→16:12)
[2019-08-10] MEDS: CLOPIDOGREL BISULFATE 75 MG TAB PO SCH (08:07)
[2019-08-10] MEDS: HEPARIN SOD (PORCINE) 5,000 UNIT/ML VIAL SC SCH ×2 (08:09→21:19)
--- NOTE | 2019-08-10 09:18 | NUR ---
ST Note: Pt remains intubated. Will f/u as indicated.
--- NOTE | 2019-08-10 10:26 | Progress Note ---
DATE: Pulmonary Progress Note SUBJECTIVE: The patient remains on mechanical ventilator. She is on dopamine at 4 mcg as well as Levophed at 5 mcg. She received Lasix yesterday and started urinating around 5 this morning. She had 270 mL of urine output. She continues to receive enteral feedings and continues to receive Precedex for sedation. PHYSICAL EXAMINATION: VITAL SIGNS: The blood pressure is 121/51, and the saturation is 100%. The patient is on the assist-control mode of ventilation at a rate of 16 with a tidal volume of 450 and 50%. PEEP is set at 8. HEENT: Shows no facial swelling or erythema. The patient has oral endotracheal tube in place. CARDIAC: Reveals regular rate and rhythm with normal S1 and S2. LUNGS: Auscultation of lungs shows rhonchorous breath sounds bilaterally. There is no wheezing. ABDOMEN: Soft, nontender. There is no rebound or guarding. EXTREMITIES: Show no leg edema or calf tenderness. LABORATORY DATA: Sodium is 138 and potassium is 3.3. The BUN to creatinine ratio is 59 to 2.96. The white blood cell count is 10.86 and the hemoglobin is 8.7. The platelet count is 183. PT is 17.3. RADIOGRAPHIC DATA: Chest x-ray shows some bilateral pleural effusions, left greater than right, and some basilar atelectasis. IMPRESSION: 1. Acute on chronic respiratory failure following cardiopulmonary arrest. 2. Acute on chronic systolic congestive heart failure. 3. Acute renal failure. 4. Aspiration pneumonia. 5. Fecal impaction. PLAN: 1. Continue current antibiotics. 2. Continue Lasix and monitor renal function. Discuss further management with Nephrology. 3. Repeat ABG. 4. Continue enteral feedings. 5. Precedex for sedation. 6. Case discussed with family members as well as with Nursing and Respiratory. Greater than 35 minutes in direct critical care time. Elias Adams MD Nubia/LIZETH /[id number]
--- NOTE | 2019-08-10 10:37 | NUR ---
ASSESSMENT: Spiritual concern Pt's family at bedside. Pt's family hopeful concerning illness. Pt's granddaughter states additional family are coming in from out of town. Intervention: Provided empathic listening. Facilitated illness review. Provided prayer. Reminded family of availability of pathology technician. Outcome: Will continue to follow as able. MIKE Mendosalain Spiritual Care Department O: [phone] Pager: [phone] ([phone] number calling from)
--- NOTE | 2019-08-10 11:46 | Consultation ---
DATE OF CONSULTATION: 08/09/2019 HISTORY OF PRESENT ILLNESS: An 84-year-old female admitted with shortness of breath, had two cardiac arrests yesterday and she is intubated in the ICU now, neurologic evaluation for her post arrest status. The patient has been weaned off all sedatives while she is still intubated. However, she is awake and follows commands. She has history of heart failure, pulmonary edema. PAST MEDICAL HISTORY: Hypothyroidism, congestive heart failure, coronary artery disease, hyperlipidemia, hypertension, GERD, congestive heart failure, hypothyroidism as mentioned before, peripheral vascular disease. 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 PAST SURGICAL HISTORY: Abdominal surgery. FAMILY HISTORY: Not available. SOCIAL HISTORY: No alcohol, drug abuse. ALLERGIES: NO KNOWN DRUG ALLERGIES. MEDICATIONS: Include atorvastatin, levothyroxine, Protonix, carvedilol, Zoloft, Plavix, melatonin, aspirin, multivitamin, potassium, albuterol, Ambien. REVIEW OF SYSTEMS: Could not be obtained, tried 14 points, but the patient is intubated. PHYSICAL EXAMINATION: VITAL SIGNS: Temperature 98, respiratory rate 16, pulse rate 80, blood pressure 121/60. The patient is on pressors. HEAD AND NECK: The patient is intubated. LUNGS: Bilateral rales. ABDOMEN: Soft. EXTREMITIES: Edema. NEUROLOGIC: The patient follows simple commands. Intubated. Pupils reactive to light bilaterally with light all brainstem reflexes are present. No definite facial asymmetry. No lateralizing weakness noted. ASSESSMENT: The patient with very mild encephalopathy, status post cardiopulmonary arrest. Findings on the exam indicate a good recovery prognosis if no new events occur. I will check EEG as well as MRI of brain for any other intracranial pathology. Ammonia level also will be checked. We will keep her on neuro checks for now. Management of her current medical issues per the primary service and all other consultants. Domingo Loya MD AM/MODMara /[id number]
[2019-08-10 12:59] LABS: ABG HCO3 25 mmol/L (23-28); ABG PCO2 29 mmHg (41-51); ABG PH 7.53 (7.31-7.41); ABG PO2 150 mmHg (80-105)
[2019-08-10] MEDS ORDERED: POTASSIUM CHLORIDE 20 MEQ TAB CR PO STA (17:11)
[2019-08-10] MEDS: MELATONIN 5 MG TABLET PO SCH (21:16)
[2019-08-10] MEDS: ATORVASTATIN 10 MG TAB PO SCH (21:16)
[2019-08-10] MEDS: SENNA-S TABLET PO SCH (21:16)
[2019-08-10] MEDS: SERTRALINE HCL 50 MG TAB PO SCH (21:16)
[2019-08-11] VITALS (27 sets, daily range): BP systolic 75–120; BP diastolic 40–101
[2019-08-11] MEDS: AZITHROMYCIN 500MG/NS 250 ML 250 ML IV SCH (04:25)
[2019-08-11 05:13] LABS: BASOPHILS % 0.2 % (0.0-1.0); EOSINOPHILS # (AUTO) 0.1 (0.0-0.4); EOSINOPHILS % 0.6 % (0.0-6.0); HEMATOCRIT 27.5 % (34.2-44.1); HEMOGLOBIN 8.4 g/dL (12.0-16.0); LYMPHOCYTES # (AUTO) 0.6 (1.0-3.2); MEAN CORPUSCULAR HEMOGLOBIN 25.1 pg (28-32); MEAN CORPUSCULAR HGB CONC 30.5 g/dL (31-35); MEAN CORPUSCULAR VOLUME 82.3 fL (81-99); MONOCYTES # (AUTO) 0.3 (0.2-0.8); MONOCYTES % 3.6 % (4.4-11.3); NEUTROPHILS # (AUTO) 7.2 (2.1-6.9); NEUTROPHILS % 87.3 % (38.7-80.0); PLATELET COUNT 150 x10e3/uL (140-360); RED BLOOD COUNT 3.34 x10e6/uL (3.6-5.1); RED CELL DISTRIBUTION WIDTH 19.1 % (11.7-14.4)
[2019-08-11 05:35] LABS: ALBUMIN 1.7 g/dL (3.5-5.0); ALBUMIN/GLOBULIN RATIO 0.6 (0.8-2.0); ANION GAP 15.7 mmol/L (8-16); CALCIUM 7.8 mg/dL (8.4-10.2); CREATININE, SERUM 3.26 mg/dL (0.57-1.11); POTASSIUM 3.7 mmol/L (3.5-5.1)
[2019-08-11] MEDS: CEFEPIME 1GM/NS 0.9% 50 ML 50 ML IV SCH ×3 (05:47→21:55)
[2019-08-11] MEDS: LEVOTHYROXINE SODIUM 100 MCG TAB PO SCH (05:47)
--- NOTE | 2019-08-11 07:14 | Diagnostic Imaging Report ---
EXAMINATION: CHEST SINGLE (PORTABLE) COMPARISON: Chest x-ray 08/10/2019 INDICATION: ^pulmonary edema ^[id number] ^0550 DISCUSSION: Frontal view of the chest obtained at 0626 hours. HEART AND MEDIASTINUM: Stable cardiomegaly and cardiac bypass changes LINES: Right IJ catheter terminates in the SVC. Enteric tube extends past the diaphragm. Endotracheal tube terminates approximately 2 cm above the vannesa. LUNGS/PLEURA: No change in bilateral pleural effusions, retrocardiac airspace opacity, and airspace opacities in the right lung, either edema or posterior atelectasis. No pneumothorax BONES AND SOFT TISSUES: Stable. IMPRESSION: Stable bilateral pleural effusions and airspace opacities in the right lung, either edema or pneumonia. Stable retrocardiac airspace disease suggestive of atelectasis. Support devices as described above. Signed by: Dr. Carlos Neumann MD on 08/11/2019 7:11 AM
[2019-08-11 08:11] LABS: ALPHA 2 GLOBULIN URINE PEP 9.6 % (.)
[2019-08-11] MEDS: ACETAMINOPHEN 325 MG TAB PO PRN (08:26)
[2019-08-11] MEDS ORDERED: FUROSEMIDE INJ 10 MG/ML 4 ML VIAL IV ONE (08:40)
--- NOTE | 2019-08-11 09:23 | NUR ---
ST Note: Pt continues to require mechanical ventilation. Will f/u as indicated.
[2019-08-11] MEDS: MULTIVITAMINS/MINERALS TAB PO SCH (09:59)
[2019-08-11] MEDS: ASPIRIN 81 MG ENTERIC COATED PO SCH (09:59)
[2019-08-11] MEDS: FAMOTIDINE 20 MG TAB PO SCH ×2 (09:59→18:54)
[2019-08-11] MEDS: POLYETHYLENE GLYCOL 3350 17 GM PACK PO SCH ×2 (09:59→18:54)
[2019-08-11] MEDS: CLOPIDOGREL BISULFATE 75 MG TAB PO SCH (09:59)
[2019-08-11] MEDS: PANTOPRAZOLE SOD 40 MG TABEC PO SCH (09:59)
[2019-08-11] MEDS: HEPARIN SOD (PORCINE) 5,000 UNIT/ML VIAL SC SCH ×2 (10:00→21:36)
--- NOTE | 2019-08-11 10:01 | Progress Note ---
DATE: Pulmonary Critical Care Progress Note SUBJECTIVE: The patient remains on assist-control mode of ventilation at a rate of 14. She continues on Levophed at 4 mcg as well as dopamine at 4 mcg. She is on Precedex for sedation. She had 550 mL of urine output overnight. PHYSICAL EXAMINATION: VITAL SIGNS: The blood pressure is 91/43, 5 of Levophed and 4 of dopamine. Her pulse is 94 and saturation is 100%. HEENT: Shows no facial swelling or erythema. There is a nasogastric tube in place. There is an oral endotracheal tube. There is a right IJ line. The site looks clean. There is no drainage. CARDIAC: Reveals regular rate and rhythm with normal S1, S2. LUNGS: Auscultation of lungs reveals crackles in both lung golden. ABDOMEN: Soft, nontender. There is no rebound or guarding. EXTREMITIES: Show no leg edema or calf tenderness. There is no cyanosis or clubbing. SKIN: Shows no rashes. LABORATORY DATA: White blood cell count is 8.2 and hemoglobin is 8.4. The platelet count is 150. The BUN to creatinine ratio is 64 to 3.26. The other electrolytes are within normal limits. Microbiology data is negative. RADIOGRAPHIC DATA: Shows stable bilateral pleural effusions and airspace opacities. IMPRESSION: 1. Giakz-eq-jqaxxmu respiratory failure. 2. Rychm-xp-uvmsomg systolic congestive heart failure. 3. Acute renal failure. 4. Aspiration pneumonia. PLAN: 1. Lasix 80 mg IV now. 2. Family is still deciding about dialysis. 3. Repeat ABG. 4. Continue mechanical ventilation for now. 5. Continue enteral feedings. 6. Complete antibiotics. 7. Case discussed with nursing staff, Respiratory, and family. Greater than 35 minutes in direct critical care time. Elias Adams MD LM/MODL /[id number]
--- NOTE | 2019-08-11 10:40 | NUR ---
ASSESSMENT: Spiritual concern Pt sleeping soundly and pt's daughter at bedside. Pt's daughter states friends will be arriving to pray the Rosary this evening and pt's son will arrive from out of town [facility]. Intervention: Provided empathic listening and pastoral presence. Facilitated identification of emotions. Provided prayer. Outcome: Pt's daughter expressed appreciation for visit. Will continue to follow as able. MIKE MARIE Linter Drier Operator Spiritual Care Department O: [phone]
--- NOTE | 2019-08-11 10:46 | Progress Note ---
DATE: 08/10/2019 SUBJECTIVE: The patient is still intubated. No new changes. She is on a low dose of Precedex, still needing pressors to keep her blood pressure up. Neurologically unchanged. PHYSICAL EXAMINATION: VITAL SIGNS: Afebrile, blood pressure 110/62 on pressors. LUNGS: Bilateral rales. NEUROLOGIC: The patient without embolization, however, she is sedated now and exam is unreliable. ASSESSMENT: Encephalopathy cannot rule out other intracranial pathology. We will check MRI of the brain while completed. If MRI cannot be done then CT scan of the head will be done. Continue supportive care. Domingo Loya MD AM/MODMara /[id number]
--- NOTE | 2019-08-11 10:56 | Electroencephalogram ---
DATE OF STUDY: 08/09/2019 REQUESTING PHYSICIAN: PROCEDURE: EEG. TECHNIQUE: An 18 channels of 20-minute EEG recording utilizing [employer] 10/20 system done today. EEG data was digitally acquired and analyzed. BACKGROUND ACTIVITY: The background rhythm consists of poorly regulated 7-8 hertz of waveforms noted moderate amount of low voltage polymorphic 3-5 hertz waveforms noted over both hemispheres. ACTIVATION: Not done. SLEEP: Most of the record is stage 2 sleep. IMPRESSION: This EEG shows moderate degree of cerebral dysfunction that is nonspecific. It should be noted that the EEG was of very poor technical quality, which made interpretation difficult. Domingo Loya MD AM/MODL /[id number]
[2019-08-11 12:05] LABS: ABG HCO3 24 mmol/L (23-28); ABG PCO2 28 mmHg (41-51); ABG PH 7.53 (7.31-7.41); ABG PO2 92 mmHg (80-105)
[2019-08-11] MEDS ORDERED: SODIUM CHLORIDE 0.9% 250ML 250 ML ONE (13:11)
--- NOTE | 2019-08-11 17:48 | Progress Note ---
DATE: Cardiology Progress Note SUBJECTIVE: The patient is seen in the room. Discussed with the family members. The patient is on ventilator and ventilator support. ASSESSMENT: 1. Pvsfk-zw-nbaoyli congestive heart failure. 2. 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 3. Hvzs-tb-wyyozbdr aortic stenosis. 4. Respiratory failure. 5. Renal failure. 6. Metabolic encephalopathy. PLAN: The patient at this time cardiac-umanzor, blood pressure 110/80. CHF is under control. Because of the respiratory failure and also renal failure, the patient got metabolic encephalopathy and at this time, I believe the patient is waiting to have hemodialysis done. Cardiac-umanzor, there is no need further cardiac evaluation. Continue present medication including diuresis, anti CHF treatment, probably hemodialysis help her. At this time, the patient is critical. She is 84 years old, multiorgan failure, and the patient also got a respiratory failure, on multiple medications. Please see the admission reconciliation medications and present medications as in the computer medication list. I will continue to follow the patient. MD DELFINO Ashford/MODL /[id number]
--- NOTE | 2019-08-11 19:00 | NUR ---
Report received. Assumed care. Assessment done. See interventions. Orally intubated with 7.5FR ETT secured at 22cm at the lip. OGT with Osmolyte 1.2 @ 30ml/hr with 15ml H2O Q2H. IVs Precedex @ 0.7mcg/kg/hr or 8.4ml/hr & Levophed @ 4mcg/min or 15ml/hr. Family member at bedside.
--- NOTE | 2019-08-11 19:45 | NUR ---
Urinary catheter care & HCG care to central line.
[2019-08-11] MEDS ORDERED: DEXMEDETOMIDINE 200MCG/NS 50ML 50 ML IV ONE (20:51)
[2019-08-11] MEDS ORDERED: NOREPINEPHRINE 8 MG/D5W 250 ML 250 ML ONE (20:52)
[2019-08-11] MEDS: SENNA-S TABLET PO SCH (21:00)
--- NOTE | 2019-08-11 21:19 | NUR ---
Cleaned x 2 for mod loose brown stool.
[2019-08-11] MEDS: ATORVASTATIN 10 MG TAB PO SCH (21:35)
[2019-08-11] MEDS: SERTRALINE HCL 50 MG TAB PO SCH (21:35)
[2019-08-11] MEDS: MELATONIN 5 MG TABLET PO SCH (21:35)
[2019-08-11] MEDS: NOREPINEPHRINE INJ 4MG/4ML 8 MG in DEXTROSE 5% 250ML 250 ML IV PRN (22:40)
[2019-08-12] VITALS (25 sets, daily range): BP systolic 87–114; BP diastolic 42–63
[2019-08-12] MEDS: ACETAMINOPHEN 325 MG TAB PO PRN ×2 (00:16→16:29)
--- NOTE | 2019-08-12 00:16 | NUR ---
Tylenol for temp 101.2.
--- NOTE | 2019-08-12 03:37 | NUR ---
Cleaned for mod BM x2.
[2019-08-12] MEDS: AZITHROMYCIN 500MG/NS 250 ML 250 ML IV SCH (04:20)
[2019-08-12 04:44] LABS: BASOPHILS % 0.2 % (0.0-1.0); EOSINOPHILS # (AUTO) 0.1 (0.0-0.4); EOSINOPHILS % 0.9 % (0.0-6.0); HEMATOCRIT 26.9 % (34.2-44.1); HEMOGLOBIN 8.3 g/dL (12.0-16.0); LYMPHOCYTES # (AUTO) 0.7 (1.0-3.2); LYMPHOCYTES % 5.8 % (18.0-39.1); MEAN CORPUSCULAR HEMOGLOBIN 25.4 pg (28-32); MEAN CORPUSCULAR HGB CONC 30.9 g/dL (31-35); MEAN CORPUSCULAR VOLUME 82.3 fL (81-99); MONOCYTES # (AUTO) 0.4 (0.2-0.8); MONOCYTES % 3.2 % (4.4-11.3); NEUTROPHILS # (AUTO) 11.2 (2.1-6.9); NEUTROPHILS % 88.6 % (38.7-80.0); PLATELET COUNT 176 x10e3/uL (140-360); RED BLOOD COUNT 3.27 x10e6/uL (3.6-5.1); RED CELL DISTRIBUTION WIDTH 19.2 % (11.7-14.4)
[2019-08-12 05:01] LABS: ALBUMIN 1.6 g/dL (3.5-5.0); ALBUMIN/GLOBULIN RATIO 0.6 (0.8-2.0); ANION GAP 16.6 mmol/L (8-16); CALCIUM 7.5 mg/dL (8.4-10.2); CREATININE, SERUM 3.56 mg/dL (0.57-1.11); POTASSIUM 3.6 mmol/L (3.5-5.1)
[2019-08-12] MEDS: CEFEPIME 1GM/NS 0.9% 50 ML 50 ML IV SCH ×2 (05:58→20:31)
[2019-08-12] MEDS: LEVOTHYROXINE SODIUM 100 MCG TAB PO SCH (05:58)
[2019-08-12] MEDS ORDERED: DEXMEDETOMIDINE 200MCG/NS 50ML 50 ML IV ONE ×2 (07:31→14:46)
--- NOTE | 2019-08-12 07:47 | Diagnostic Imaging Report ---
Examination: Single AP view of the chest. COMPARISON: Portable chest 08/11/2019 INDICATION: Respiratory distress, respiratory failure, intubated IMPRESSION: 1. Lines and Tubes: Endotracheal tube has distal tip projecting approximately 3.2 cm above the vannesa. Unchanged right-sided central catheter and enteric tube. 2. No interval change in bilateral pleural effusions, left greater than right, left retrocardiac opacity, which may represent atelectasis, or alveolar edema or pneumonia. Mild atelectatic changes in the right base. 3. Cardiomediastinal silhouette is obscured. Central pulmonary venous congestion. 4. No acute bony abnormalities. Signed by: Dr. Zechariah Price M.D. on 08/12/2019 7:45 AM
[2019-08-12 07:53] LABS: LYMPHOCYTES % (MANUAL) 7 % (19-48); MONOCYTES % (MANUAL) 4 % (3.4-9.0); NEUTROPHILS % (MANUAL) 89 % (40-74)
--- NOTE | 2019-08-12 08:37 | NUR ---
CONSULT CALLED FOR SPOKE TO ROBBIN
[2019-08-12 08:41] LABS: ABG HCO3 20 mmol/L (23-28); ABG PCO2 27 mmHg (41-51); ABG PH 7.49 (7.31-7.41); ABG PO2 85 mmHg (80-105)
[2019-08-12] MEDS ORDERED: FUROSEMIDE INJ 10 MG/ML 4 ML VIAL IV ONE ×2 (08:58→10:15)
[2019-08-12] MEDS: POLYETHYLENE GLYCOL 3350 17 GM PACK PO SCH ×2 (09:00→16:28)
[2019-08-12] MEDS ORDERED: MEROPENEM 1GM 100 ML IV SCH (09:00)
--- NOTE | 2019-08-12 09:09 | NUR ---
ST Note: Pt continues to require mechanical ventilation. Will f/u as indicated.
[2019-08-12] MEDS ORDERED: FUROSEMIDE INJ 100 MG in SODIUM CHLORIDE 0.9% 100 ML 90 ML IV SCH (09:15)
[2019-08-12] MEDS: MULTIVITAMINS/MINERALS TAB PO SCH (09:54)
[2019-08-12] MEDS: PANTOPRAZOLE SOD 40 MG TABEC PO SCH (09:54)
[2019-08-12] MEDS: FAMOTIDINE 20 MG TAB PO SCH ×2 (09:54→16:28)
[2019-08-12] MEDS: ASPIRIN 81 MG ENTERIC COATED PO SCH (09:54)
[2019-08-12] MEDS: CLOPIDOGREL BISULFATE 75 MG TAB PO SCH (09:54)
[2019-08-12] MEDS ORDERED: VANCOMYCIN 1GM/NS 250 ML 250 ML IV ONE (10:00)
--- NOTE | 2019-08-12 10:55 | NUR ---
ASSESSMENT: Spiritual concern Pt sleeping soundly with pt's granddaughter at bedside. Pt's granddaughter is from [place]. She and her father (pt's son) are visiting a few days to provide respite for family. Intervention: Provided hospitality and empathic listening. Facilitated storytelling. Outcome: Will continue to follow as able. MIKE Mendosalain Spiritual Care Department O: [phone]
--- NOTE | 2019-08-12 11:04 | Progress Note ---
DATE: SUBJECTIVE: The patient was placed on SIMV yesterday, but became more tachypneic. She had to be switched back to assist control. She was weaned off dopamine, but remains on Levophed at 6 mcg. The patient has had fever on the night of the and again on the . She has some increased urine output and is -235 mL since yesterday. PHYSICAL EXAMINATION: VITAL SIGNS: The blood pressure is 87/44 on Levophed. Levophed is set at 6 mcg. The pulse is 72. She is currently on an assist-control mode of ventilation at a rate of 16 with a tidal volume of 400. There is a right IJ line in place. The site looks clean. There is no drainage. CARDIAC: Reveals a regular rate and rhythm with normal S1 and S2. RESPIRATORY: Auscultation of lungs reveal rhonchorous breath sounds bilaterally. There is no wheezing. ABDOMEN: Soft and nontender. There is no rebound or guarding. EXTREMITIES: Show no leg edema or calf tenderness. LABORATORY DATA: White blood cell count is 12.6, hemoglobin is 8.3, and the platelet count is 176. Sodium is 135 and the BUN to creatinine ratio is 69 to 3.56. The albumin is 1.6. RADIOGRAPHIC DATA: Chest x-ray shows endotracheal tube and central line in good position. There are bilateral pleural effusions, left greater than right, as well as some alveolar edema. IMPRESSION: 1. Acute on chronic respiratory failure. 2. Acute on chronic systolic heart failure. 3. Acute renal failure. 4. Aspiration pneumonia. 5. Fecal impaction. PLAN: 1. Escalate antibiotics to Merrem and Zithromax. We will also give 1 g of vancomycin. The patient has been recultured. Infectious Disease has been consulted. 2. Begin Lasix drip. 3. Repeat ABG. 4. Continue enteral feedings. 5. Continue Precedex for sedation. 6. Case discussed with Dr. Mancilla of Nephrology, Infectious Disease, Nursing, Respiratory, and family. Greater than 35 minutes in direct critical care time. Elias Adams MD LM/LIZETH /[id number]
[2019-08-12] MEDS: HEPARIN SOD (PORCINE) 5,000 UNIT/ML VIAL SC SCH ×2 (11:22→21:49)
[2019-08-12 11:47] LABS: CLARITY,URINE CLEAR (CLEAR); COLOR,URINE YELLOW (YELLOW)
[2019-08-12 11:48] LABS: LEUKOCYTE ESTERASE ,URINE TRACE (NEGATIVE); NITRITE,URINE NEGATIVE (NEGATIVE); PROTEIN,URINE DIPSTICK 1+ (NEGATIVE)
[2019-08-12 11:49] LABS: BILIRUBIN,URINE NEGATIVE (NEGATIVE); KETONES,URINE NEGATIVE (NEGATIVE); URINE UROBILINOGEN 0.2 mg/dL (0.2 - 1)
[2019-08-12] MEDS ORDERED: METOPROLOL TARTRATE INJ 1 MG/ML VIAL ONE (11:54)
[2019-08-12 11:55] LABS: BACTERIA,URINE MODERATE /HPF; EPITHELIAL CELLS,URINE FEW /LPF
[2019-08-12 11:57] LABS: YEAST,URINE MODERATE
[2019-08-12] MEDS ORDERED: METOPROLOL TARTRATE INJ 1 MG/ML VIAL IV ONE (12:15)
--- NOTE | 2019-08-12 16:00 | NUR ---
SPOKE TO NOTIFIED PT HAD A DECREASE IN URINE OUTPUT PER MD RN TO CALL IN AM WITH LAB RESULTS, FAMILY MADE AWARE OF POC
[2019-08-12] MEDS: DILTIAZEM HCL 125 ML IV SCH (16:03)
[2019-08-12] MEDS: CARVEDILOL 3.125 MG TAB PO SCH (16:30)
--- NOTE | 2019-08-12 17:10 | NUR ---
DR.SHEBIB RAMOS SPOKE WITH FAMILY REGARDING POC, TUBE FEEDS TO BE HELD AT THIS TIME.
[2019-08-12] MEDS ORDERED: CEFEPIME HCL 1 GM VIAL IV SCH (17:30)
[2019-08-12 17:45] LABS: ABG HCO3 19 mmol/L (23-28); ABG PCO2 25 mmHg (41-51); ABG PO2 90 mmHg (80-105)
[2019-08-12] MEDS: FUROSEMIDE INJ 100 MG in SODIUM CHLORIDE 0.9% 100 ML 90 ML IV SCH (19:45)
[2019-08-12] MEDS ORDERED: SODIUM CHLORIDE 0.9% 250ML 250 ML ONE (20:18)
[2019-08-12] MEDS: SERTRALINE HCL 50 MG TAB PO SCH (21:00)
[2019-08-12] MEDS: MELATONIN 5 MG TABLET PO SCH (21:00)
[2019-08-12] MEDS: ATORVASTATIN 10 MG TAB PO SCH (21:00)
[2019-08-12] MEDS: SENNA-S TABLET PO SCH (21:00)
[2019-08-12] MEDS: METRONIDAZOLE 500MG/NS 100ML 100 ML IV SCH (21:48)
[2019-08-13] VITALS (25 sets, daily range): BP systolic 68–158; BP diastolic 28–55
--- NOTE | 2019-08-13 00:24 | Consultation ---
DATE OF CONSULTATION: REASON FOR CONSULTATION: 1. Fever. 2. Sepsis, septic shock. 3. Concern about ischemic colitis. Thank you for asking me to see this patient. 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 She also has history of dementia, which is getting progressively worse. The patient has been in long term for more than a few years, but since May, she is getting progressively worse. The patient apparently was in [place] where she had a GI bleed, upper, probably also lower. The patient comes into the emergency room with shortness of breath and abdominal pain. According to family, she did not look right at the long term. She was brought here. She was found to have severe constipation, fecal impaction. When she first came, she was somnolent and lethargic. CAT scan of abdomen and pelvis showed severe constipation with fecal impaction. The patient who has been on aspirin, atorvastatin, carvedilol, vitamin B12, famotidine, levothyroxine, losartan, melatonin, multivitamin, omega-3. The patient was admitted and started on Zosyn, hydrocodone, and lisinopril. She has been seen by GI. The patient has been on azithromycin. Yesterday, she had a fever. She was started on meropenem and vancomycin. Also, this patient had acute kidney injury. She was seen by Renal. The patient a few days ago became quite worse, and was intubated on August 08. I was asked to see her today because clinically she is worse with fever as mentioned above. Her blood cultures have been negative. Her white count is 12.6, hemoglobin of 8, hematocrit 26. Sodium 135, potassium 3.6, creatinine 3.56. REVIEW OF SYSTEMS: Could not be obtained. MEDICATION LIST: She is currently on Tylenol, Pepcid, heparin, meropenem as mentioned above, azithromycin. She received vancomycin. PHYSICAL EXAMINATION: GENERAL: She is noncommunicative, intubated. VITAL SIGNS: Stable now on vasopressors. HEENT: Normocephalic. NECK: Supple. CHEST: A few crackles at the bases. COR: S1, S2. ABDOMEN: Soft. Bowel sound seemed hypoactive. EXTREMITIES: No edema. IMPRESSION: Fever, sepsis, concerned about ischemic colitis in a patient who has history of severe peripheral vascular disease, gastrointestinal bleed recently, abdominal pain recently. Discussed with the family at length. Answered all the questions. They seem very aware of her condition and medically knowledgeable prognosis is extremely poor. They understand that. I think we put her on cefepime and Flagyl, cefepime 1 g daily, Flagyl 500 q.8. We discussed DNR. Also, prognosis is extremely poor. The fully understand. We will follow. We will discuss with Dr. Adams. MD JONATAN Escalante/LIZETH /[id number]
[2019-08-13] MEDS: LEVOTHYROXINE SODIUM 100 MCG TAB PO SCH (04:02)
[2019-08-13] MEDS: METRONIDAZOLE 500MG/NS 100ML 100 ML IV SCH ×3 (04:08→20:56)
[2019-08-13] MEDS: ACETAMINOPHEN 325 MG TAB PO PRN (04:52)
[2019-08-13 05:17] LABS: BASOPHILS # (AUTO) 0.1 (0.0-0.1); BASOPHILS % 0.3 % (0.0-1.0); EOSINOPHILS % 0.2 % (0.0-6.0); HEMATOCRIT 27.3 % (34.2-44.1); HEMOGLOBIN 8.5 g/dL (12.0-16.0); LYMPHOCYTES # (AUTO) 1.3 (1.0-3.2); LYMPHOCYTES % 7.1 % (18.0-39.1); MEAN CORPUSCULAR HEMOGLOBIN 25.4 pg (28-32); MEAN CORPUSCULAR HGB CONC 31.1 g/dL (31-35); MEAN CORPUSCULAR VOLUME 81.5 fL (81-99); MONOCYTES # (AUTO) 0.7 (0.2-0.8); MONOCYTES % 3.6 % (4.4-11.3); NEUTROPHILS # (AUTO) 15.8 (2.1-6.9); PLATELET COUNT 195 x10e3/uL (140-360); RED BLOOD COUNT 3.35 x10e6/uL (3.6-5.1); RED CELL DISTRIBUTION WIDTH 19.2 % (11.7-14.4)
[2019-08-13] MEDS: FUROSEMIDE INJ 100 MG in SODIUM CHLORIDE 0.9% 100 ML 90 ML IV SCH ×2 (05:28→15:27)
[2019-08-13 05:37] LABS: ALBUMIN 1.5 g/dL (3.5-5.0); ALBUMIN/GLOBULIN RATIO 0.5 (0.8-2.0); ANION GAP 19.1 mmol/L (8-16); CALCIUM 7.6 mg/dL (8.4-10.2); CREATININE, SERUM 4.19 mg/dL (0.57-1.11); POTASSIUM 4.1 mmol/L (3.5-5.1)
[2019-08-13] MEDS ORDERED: LORAZEPAM INJ 2 MG/ML VIAL IV ONE (08:45)
[2019-08-13] MEDS: CARVEDILOL 3.125 MG TAB PO SCH ×2 (08:53→16:00)
[2019-08-13] MEDS: ASPIRIN 81 MG ENTERIC COATED PO SCH (08:54)
[2019-08-13] MEDS: CLOPIDOGREL BISULFATE 75 MG TAB PO SCH (08:54)
[2019-08-13] MEDS: PANTOPRAZOLE SOD 40 MG TABEC PO SCH (08:55)
[2019-08-13] MEDS: FAMOTIDINE 20 MG TAB PO SCH ×2 (08:55→17:00)
[2019-08-13] MEDS: POLYETHYLENE GLYCOL 3350 17 GM PACK PO SCH ×2 (09:00→16:00)
[2019-08-13] MEDS: HEPARIN SOD (PORCINE) 5,000 UNIT/ML VIAL SC SCH ×2 (09:00→20:57)
[2019-08-13] MEDS: MULTIVITAMINS/MINERALS TAB PO SCH (09:00)
--- NOTE | 2019-08-13 09:14 | NUR ---
ST Note: Pt continues to require mechanical ventilation. Will f/u as indicated.
--- NOTE | 2019-08-13 10:22 | NUR ---
ASSESSMENT: Spiritual Concern Pt sleeping soundly with pt's son and daughter at bedside. Pt's family state they decided to change her code status yesterday "it was difficult but what she would have wanted." Intervention: Provided supportive pastoral presence. Facilitated illness review and storytelling. Provided prayer. Outcome: Pt's family expressed appreciation for visit. Will continue to follow as able. MIKE MARIE Bulk Fluids Handler Spiritual Care Department O: [phone]
--- NOTE | 2019-08-13 10:36 | Progress Note ---
DATE: SUBJECTIVE: The patient has required additional Levophed overnight and is now on 50 mcg. The patient was seen by Infectious Disease yesterday. She was switched back to cefepime and Flagyl. Her urine output has decreased and her creatinine is rising. The family has opted for DNR status, but wants to continue with mechanical ventilation as well as dialysis for now. She is scheduled to have Jeff catheter placed by Interventional Radiology today. OBJECTIVE: VITAL SIGNS: Blood pressure is 95/40 on Levophed at 50 mcg. Her temperature is 101.3. She remains on assist-control at rate of 16 with a tidal volume of 350. She is breathing at 27 times a minute. HEENT: Shows no facial swelling or erythema. There is a right IJ line in place. The site looks clean. There is no drainage. There is a nasogastric tube in place. CARDIAC: Reveals a regular rate and rhythm with normal S1 and S2. LUNGS: Auscultation of lungs reveals clear breath sounds bilaterally. There is no wheezing. ABDOMEN: Soft and nontender. There is no rebound or guarding. EXTREMITIES: Show no leg edema or calf tenderness. There is no cyanosis or clubbing. SKIN: Shows no rashes. LABORATORY DATA: White blood cell count is 18.2 and hemoglobin is 8.5. The platelet count is 195. BUN to creatinine ratio is 77 to 4.019. The carbon dioxide is 20 and chloride is 99. Chest x-ray shows bilateral pleural effusions and some retrocardiac infiltrate. ASSESSMENT: 1. Mrndu-ch-yzokmno respiratory failure. 2. Fever and sepsis with unclear etiology. 3. Acute renal failure. 4. Aspiration pneumonia. 5. Fecal impaction. PLAN: 1. Temporary dialysis catheter placement today and begin dialysis. 2. ABG. 3. Continue Levophed. 4. Continue Precedex for sedation and given additional mg of Ativan. 5. Continue enteral feedings. 6. Prognosis remains very poor. 7. Greater than 35 minutes in direct critical care time. Elias Adams MD [facility]/MODL /[id number]
[2019-08-13] MEDS ORDERED: HEPARIN SOD (PORCINE) 1000 UNIT/ML SDV ONE ×2 (11:02→18:41)
--- NOTE | 2019-08-13 11:42 | Diagnostic Imaging Report ---
Chest, portable AP view History: Status post hemodialysis catheter placement Comparison: 08/12/2019 IMPRESSION: There has been interval insertion of a left internal jugular hemodialysis catheter. The distal tip of the catheter terminates in the superior right atrium. Other support devices are unchanged. The cardiac borders are stable. There is a moderate left pleural effusion with associated compressive atelectasis of the left lower lobe. No pneumothorax. Signed by: Sherwin Joaquin MD on 08/13/2019 11:39 AM
--- NOTE | 2019-08-13 11:50 | Diagnostic Imaging Report ---
Nontunneled dialysis catheter insertion, 08/13/2019. History: Renal failure requiring hemodialysis. Modality: Ultrasound. Placement confirmed by chest radiograph Sedation: None. Marriage And Family Counselor: Sherwin Joaquin MD. Classifications Officer Cc/Cm: None. Approach: Left internal jugular vein Estimated blood loss: < 5 cc. Specimen: None. Technique: Informed written consent was obtained. Discussion of risks, benefits, and alternatives were made with the patient's family. The patient's family expressed understanding and agreed to proceed. A universal timeout was performed prior to starting the procedure. All elements maximal sterile barrier technique was utilized for this procedure, including utilization of sterile scrub solution for skin prep, a large sterile sheet to cover the areas of the patient that were not prepped, and hand hygiene, mask, head covering, and sterile gown for performing radiologist. The procedures performed at the patient's bedside in the ICU. The skin was anesthetized with 2% lidocaine. Ultrasound evaluation showed a patent and compressible left internal jugular vein, which was punctured under direct real-time ultrasound guidance with a micropuncture needle. An ultrasound image was saved to PACS. A microwire and sheath were placed. A 0.035 inch wire was placed through the sheath into the right atrium. The tract was serially dilated. The 20 cm Trialysis temporary dialysis catheter was placed over the wire into the vein. The ports were flushed and aspirated easily following placement. The catheter was sutured to the skin to secure its placement. Vital signs were monitored throughout the procedure by a nurse, and remained stable. Results: Radiograph of the chest demonstrates the new dialysis catheter to lie in the expected position with its tip overlying the superior right atrium. Impression: Successful, uncomplicated placement of a left internal jugular nontunneled dialysis catheter. Signed by: Sherwin Joaquin MD on 08/13/2019 11:47 AM
[2019-08-13] MEDS: DILTIAZEM HCL 125 ML IV SCH (12:00)
[2019-08-13] MEDS: NOREPINEPHRINE INJ 4MG/4ML 8 MG in DEXTROSE 5% 250ML 250 ML IV PRN (13:01)
[2019-08-13 13:04] LABS: ABG PCO2 25 mmHg (41-51); ABG PO2 110 mmHg (80-105)
[2019-08-13 13:05] LABS: ABG HCO3 20 mmol/L (23-28)
--- NOTE | 2019-08-13 14:11 | NUR ---
WOUND CARE CONSULTATION 84 YO FEMALE PATIENT ADMITTED TO [facility] WITH DX OF RESPIRATORY DISTRESS AND VOLUME OVERLOAD MASOUD 12 ON STRICT PUP PT REQUIRES A SURFACE ALTERNATING PRESSURE MATTRESS. LABS: WBC 18.19, HGB 8.5, GLUCOSE 102 MICRO: BLOOD CULTURE NO GROWTH PRELIMINARY URINE CULTURE NO GROWTH PRELIMINARY CHEST X-RAY- CENTRAL PULMONARY VENOUS CONGESTION MILD ATELECTATIC CHANGES IN THE RIGHT BASE HEAD TO TOE SKIN ASSESSMENT PERFORMED TODAY, PT PRESENTS WITH MULTIPLE HEALED ABRASIONS THROUGH OUT BODY AND MULTIPLE SMALL BRUISES TO BILATERAL UPPER EXTREMITIES. LEFT BKA. DTI TO POSTERIOR SACRUM MEASURING 8CM X 10 CM; DISCOLORED AND DARK RED, NON BLANCHABLE. RIGHT UPPER POSTERIOR BACK ABRASION MEASURING 0.5CM X 0.2 CM X 0.1 CM SUPERFICIAL. SEROUS DRAINAGE RIGHT LOWER POSTERIOR BACK ABRASION MEASURING 0.6 CM X 2.6 CM X 0.1CM, SUPERFICIAL. CALLUS TO RIGHT HEEL MEASURING 2CMX 2CM. RECOMMENDATIONS: NURSING TO PLACE PT ON AN ALTERNATING PRESSURE MATTRESS. CONTINUE WITH HEEL PROTECTOR TO R HEEL AND CONTINUE WITH PILLOW SUSPENSION TO RELIEVE PRESSURE TO CALLUS. CLEAN UPPER AND LOWER RIGHT BACK WITH NORMAL SALINE, PAT DRY, APPLY XEROFORM, COVER WITH ALLEVYN FOAM DAILY AND PRN. CLEAN SACRAL DTI WITH NS, PAT DRY WITH 4X4 GAUZE, APPLY VENELEX, COVER WITH ALLEVYN FOAM. REMOVE BRIEF TO PREVENT SKIN BREAK DOWN. REPOSITION PT SIDE TO SIDE IN BED Q2H AND PRN. NURSING TO RECONSULT WOUND CARE NEEDED. Addendum: 08/13/19 at 1526 by Krystle Nicole RN Amended: Links added.
[2019-08-13] MEDS ORDERED: SODIUM CHLORIDE 0.9% 1000ML 1,000 ML ONE (16:24)
[2019-08-13] MEDS ORDERED: MANNITOL 25% 12.5GM/50 ML VIAL IV PRN (16:30)
[2019-08-13] MEDS ORDERED: SODIUM CHLORIDE 0.9% 1000ML 2,000 ML IV PRN (16:30)
[2019-08-13] MEDS ORDERED: SODIUM CHLORIDE 0.9% 250ML 500 ML IV PRN (16:30)
--- NOTE | 2019-08-13 17:08 | Progress Note ---
DATE: Cardiology Progress Note. SUBJECTIVE: The patient is seen in ICU, bed 195. The patient is intubated and sedated. IMPRESSION: 1. Pneumonia, possible aspiration pneumonia. 2. Severe congestive heart failure, ejection fraction 25%, status bypass surgery in the past. 3. Acute renal failure. 4. Acute respiratory failure. PLAN: The patient at this time with possible infection and ID specialist following the patient clinically. Blood pressure 100/70, heart rate 90 per minute. The patient is on mild dose of epinephrine and the patient is followed very closely. Multiple specialists, ID, Renal, and Dr. Adams, critical care and pulmonary physician, who is also primary seeing this patient. My point of view, the patient has a chronic congestive heart failure that is as for the heart, this is quite stable. She is on Lasix also and the patient at this time sedated. Neurology following the patient. The patient was slightly confused about three days ago, now sedated and is well rested and I will continue follow the patient from cardiac point of view. Continue present care. MD DELFINO Ashford/LIZETH /[id number]
[2019-08-13] MEDS ORDERED: ENOXAPARIN 30 MG/0.3 ML SYR SC STA (17:13)
--- NOTE | 2019-08-13 18:31 | NUR ---
Nutrition Intervention Note RD Recommendation(s) for Physician: -TF recommendation when medically feasible and hemodynamically stable: Trickle feeds of Vital HP at 10 ml/hr advance as tolerated and when medically feasible to goal rate of 50 ml/hr (provides 1200 kcal, 105 gram protein) -IVF management and additional flushes per MD. Plan of Care: RD following, monitoring for tolerance and adequacy. Nutrition reason for involvement: follow up RD Assessment 08/13: Follow up note. Tube feed order was cancelled yesterday. RN reported that tube feeding was stopped due to pts pressor support. Recommend resuming tube feeding when pt is hemodynamically stable. Pt is going to be started on dialysis. Will continue to monitor. 08/09: 84 YOF admitted for resp distress with PMH listed below. The pt was seen within the ICU intubated, no sedation. The pt is on 2 pressors (dopamine and levo), current rates are not recorded within EMR. MD ordered Osmolite at 10 ml/hr. Since pt is intubated, recommend Vital at this time. Per MD note- the family is considering withdrawal. Pt was also started on a bicarb drip. Will continue to monitor. Principal Problems/Diagnoses: Resp Distress PMH: Hypothyroidism, Congestive heart failure , Coronary artery disease, Hyperlipidemia, Hypertension, GERD, Abdominal ventral hernia, Hypothyroidism, Peripheral vascular disease, CVA. GI: Abd: soft, round LBM: 08/13 Skin: no pressure ulcer recorded Labs: 08/13: Na 134, BUN 77, Creat 4.19 08/09: lactic acid: 2.8, B-Farzana peptide 7128 Meds: norepinephrine, protonix, pepcid, furosemide, heparin, multivitamin with minerals, levothyroxine, Lipitor. Senokot, propofol Ht: 61 in Wt: 117 lbs (08/13) 111 lbs (08/10) BMI: 22.2 kg/m^2 IBW: 105 lbs Malnutrition Evaluation 08/13 Unable to evaluate at this time. Will re-evaluate at follow-up as appropriate. Energy intake: <50% of estimated energy requirements for >5 days Weight loss: -unable to evaluate Fat loss: unable to evaluate Muscle loss, unable to evaluate Nutrition Prescription (Diet Order): NPO Estimated Nutritional Needs: Calories:5041-4234 kcal/day (20-25 kcal/kg/day) Weight used : 50 kg Protein : 65-100 protein/day (1.3-2 gram/kg/day ) Weight used: 50 kg Diet Adequacy:Not meeting calorie needs, Not meeting protein needs Diet Education Needs Assessment: Diet education not indicated, patient on temporary/transition diet. Nutrition Care Level: high Nutrition Diagnosis: Inadequate energy intake related to medical condition as evidenced by the pts need for intubation and is currently NPO. Goal: Patient will meet 75-100% of estimated needs by follow up Progress: not progressing Interventions: Composition, Rate, Route, Collaboration with other providers Monitoring/Evaluation: -Total energy intake, Total protein intake, Formula/Solution, IVF, Prescription medication Signed: Kaitlin Ordonez RD, [place]
--- NOTE | 2019-08-13 19:00 | NUR ---
Per Dr. Mancilla orders given for HD nontunelled catheter placement with dialysis today. Jyoti DOBSON signed consent for dialysis and HD catheter placement. [facility] and informed of new pt dialysis today. Chest X ray ordered to verify placement. Per IR doctor, line is ok to use. Dialysis done today 500 ml removed.
[2019-08-13] MEDS: SENNA-S TABLET PO SCH (20:56)
[2019-08-13] MEDS: CEFEPIME 1GM/NS 0.9% 50 ML 50 ML IV SCH (20:56)
[2019-08-13] MEDS: ATORVASTATIN 10 MG TAB PO SCH (20:56)
[2019-08-13] MEDS: MELATONIN 5 MG TABLET PO SCH (20:58)
[2019-08-13] MEDS: SERTRALINE HCL 50 MG TAB PO SCH (20:58)
[2019-08-14] VITALS (25 sets, daily range): BP systolic 79–148; BP diastolic 33–74
[2019-08-14] MEDS: NOREPINEPHRINE INJ 4MG/4ML 8 MG in DEXTROSE 5% 250ML 250 ML IV PRN ×2 (02:07→22:14)
[2019-08-14] MEDS: FUROSEMIDE INJ 100 MG in SODIUM CHLORIDE 0.9% 100 ML 90 ML IV SCH ×3 (02:07→18:18)
[2019-08-14] MEDS: METRONIDAZOLE 500MG/NS 100ML 100 ML IV SCH ×3 (04:00→20:33)
[2019-08-14 05:11] LABS: BASOPHILS # (AUTO) 0.1 (0.0-0.1); BASOPHILS % 0.4 % (0.0-1.0); EOSINOPHILS # (AUTO) 0.1 (0.0-0.4); EOSINOPHILS % 0.6 % (0.0-6.0); HEMOGLOBIN 8.6 g/dL (12.0-16.0); LYMPHOCYTES # (AUTO) 0.9 (1.0-3.2); LYMPHOCYTES % 4.6 % (18.0-39.1); MEAN CORPUSCULAR HEMOGLOBIN 24.7 pg (28-32); MEAN CORPUSCULAR HGB CONC 30.7 g/dL (31-35); MEAN CORPUSCULAR VOLUME 80.5 fL (81-99); MONOCYTES # (AUTO) 0.7 (0.2-0.8); MONOCYTES % 3.6 % (4.4-11.3); NEUTROPHILS # (AUTO) 17.1 (2.1-6.9); NEUTROPHILS % 88.5 % (38.7-80.0); PLATELET COUNT 203 x10e3/uL (140-360); RED BLOOD COUNT 3.48 x10e6/uL (3.6-5.1)
[2019-08-14 05:28] LABS: MAGNESIUM 1.8 MG/DL (1.3-2.1); PHOSPHORUS 4.2 MG/DL (2.3-4.7)
[2019-08-14] MEDS: LEVOTHYROXINE SODIUM 100 MCG TAB PO SCH (05:44)
[2019-08-14 05:56] LABS: ALBUMIN 1.5 g/dL (3.5-5.0); ALBUMIN/GLOBULIN RATIO 0.4 (0.8-2.0); ANION GAP 13.6 mmol/L (8-16); CALCIUM 7.7 mg/dL (8.4-10.2); CREATININE, SERUM 3.23 mg/dL (0.57-1.11); POTASSIUM 3.6 mmol/L (3.5-5.1)
--- NOTE | 2019-08-14 05:59 | Diagnostic Imaging Report ---
EXAMINATION: CHEST SINGLE (PORTABLE) COMPARISON: Chest x-ray 08/13/2019 INDICATION: ^Resp Failure ^[id number] ^0505 DISCUSSION: Frontal view of the chest obtained at 0526 hours. HEART AND MEDIASTINUM: Stable cardiomegaly and cardiac bypass changes LINES: Endotracheal tube terminates 2 to 3 cm of the vannesa. Dual lumen left IJ central venous catheter terminates in the right atrium. Right IJ catheter terminates in the SVC. Enteric tube extends past the diaphragm. LUNGS: Worsening pulmonary vascular congestion and alveolar airspace opacities. Retrocardiac airspace opacity is stable. PLEURA: Bilateral pleural effusions, left larger than right BONES AND SOFT TISSUES: No focal osseous lesion. The soft tissues are normal. IMPRESSION: 1. Support devices as described above. 2. Worsening pulmonary vascular congestion and pulmonary edema. 3. Stable retrocardiac airspace disease and left pleural effusion. Signed by: Dr. Carlos Neumann MD on 08/14/2019 5:57 AM
[2019-08-14] MEDS: CLOPIDOGREL BISULFATE 75 MG TAB PO SCH (08:07)
[2019-08-14] MEDS: FAMOTIDINE 20 MG TAB PO SCH (08:07)
[2019-08-14] MEDS: PANTOPRAZOLE SOD 40 MG TABEC PO SCH (08:07)
[2019-08-14] MEDS: ASPIRIN 81 MG ENTERIC COATED PO SCH (08:07)
[2019-08-14] MEDS: BALSAM PERU/CASTOR OIL 60 GM OINT...G. TP SCH (08:08)
[2019-08-14] MEDS: HEPARIN SOD (PORCINE) 5,000 UNIT/ML VIAL SC SCH ×2 (08:09→20:33)
[2019-08-14] MEDS: DILTIAZEM HCL 125 ML IV SCH (09:23)
--- NOTE | 2019-08-14 10:36 | Progress Note ---
DATE: SUBJECTIVE: The patient had dialysis yesterday, but only 460 mL could be removed. She remains on Levophed at 15 mcg. She remains on assist-control ventilation. She is being seen by Infectious Disease and Nephrology. OBJECTIVE: VITAL SIGNS: Temperature is 100.0, blood pressure is 114/33, on 15 mcg of Levophed. She has a heart rate of 84 and remains on the assist-control mode of ventilation. HEENT: She has no facial swelling or erythema. There has an oral endotracheal tube in place. She has a right IJ line in place as well as a left dialysis catheter. The sites look clean. CARDIAC: Reveals a regular rate and rhythm with normal S1 and S2. LUNGS: Auscultation of lungs reveals crackles at both bases. There is no wheezing. ABDOMEN: Soft and nontender. There is no rebound or guarding. EXTREMITIES: Show 1 to 2+ leg edema. LABORATORY DATA: Sodium is 133 and the chloride is 100. The carbon dioxide is 23. The BUN to creatinine ratio is 50 to 3.23. White blood cell count is 19.3 and hemoglobin is 8.6. The platelet count is 203. RADIOGRAPHIC DATA: Chest x-ray shows worsening bilateral infiltrates. IMPRESSION: 1. Uzptu-mg-xksblpw respiratory failure. 2. Acute renal failure. 3. Severe sepsis with hypotension, requiring pressors. 4. Aspiration pneumonia. 5. Cardiomyopathy. 6. Metabolic encephalopathy. PLAN: 1. Continue dialysis as tolerated. 2. Continue assist-control mode of ventilation and repeat ABG. 3. Wean Levophed as tolerated. 4. Continue current antibiotics and monitor culture results. 5. Prognosis is very poor. The family has opted for DNR and is considering palliative care. 6. Case discussed with family, nursing, Infectious Disease and Nephrology. Greater than 35 minutes in direct critical care time. Elias Adams MD [facility]/JESSEL /[id number]
[2019-08-14] MEDS ORDERED: HEPARIN SOD (PORCINE) 1000 UNIT/ML SDV ONE (11:46)
[2019-08-14] MEDS ORDERED: HEPARIN SOD (PORCINE) 1000 UNIT/ML SDV IV PRN (12:15)
[2019-08-14] MEDS ORDERED: DEXMEDETOMIDINE 200MCG/NS 50ML 50 ML IV PRN (12:30)
[2019-08-14] MEDS ORDERED: LORAZEPAM INJ 2 MG/ML VIAL IV NR (16:30)
[2019-08-14 16:54] LABS: ABG HCO3 25 mmol/L (23-28); ABG PCO2 31 mmHg (41-51); ABG PH 7.52 (7.31-7.41); ABG PO2 72 mmHg (80-105)
[2019-08-14] MEDS: FAMOTIDINE 20 MG/2 ML VIAL IV SCH (17:08)
--- NOTE | 2019-08-14 18:10 | NUR ---
Wound care done to sacral wound and skin tear on back. Dialysis ordered per tube winder hand. 2L removed during dialysis. Flagyl administered late due to dialysis. ABG results called to Dr. Guerrero. Orders given for Ativan. Will continue to monitor.
--- NOTE | 2019-08-14 19:10 | NUR ---
RN asked family to provide POA paperwork.
[2019-08-14] MEDS: CEFEPIME 1GM/NS 0.9% 50 ML 50 ML IV SCH (19:53)
[2019-08-14] MEDS: SENNA-S TABLET PO SCH (20:31)
[2019-08-14] MEDS: MELATONIN 5 MG TABLET PO SCH (20:31)
[2019-08-14] MEDS: ATORVASTATIN 10 MG TAB PO SCH (20:31)
[2019-08-14] MEDS: SERTRALINE HCL 50 MG TAB PO SCH (20:32)
[2019-08-15] VITALS (25 sets, daily range): BP systolic 82–150; BP diastolic 41–95
[2019-08-15] MEDS ORDERED: NOREPINEPHRINE 8 MG/D5W 250 ML 250 ML ONE (00:07)
[2019-08-15] MEDS: NOREPINEPHRINE INJ 4MG/4ML 8 MG in DEXTROSE 5% 250ML 250 ML IV PRN (00:52)
[2019-08-15] MEDS ORDERED: DILTIAZEM HCL IV 5MG/ML 25 ML VIAL ONE (01:26)
[2019-08-15] MEDS ORDERED: SODIUM CHLORIDE 0.9% 100 ML ONE (01:26)
[2019-08-15] MEDS ORDERED: DEXMEDETOMIDINE 200MCG/NS 50ML 50 ML IV PRN (03:30)
[2019-08-15] MEDS: FUROSEMIDE INJ 100 MG in SODIUM CHLORIDE 0.9% 100 ML 90 ML IV SCH ×2 (04:05→14:18)
[2019-08-15] MEDS: METRONIDAZOLE 500MG/NS 100ML 100 ML IV SCH ×3 (04:05→19:56)
[2019-08-15 05:04] LABS: BASOPHILS % 0.2 % (0.0-1.0); EOSINOPHILS % 0.1 % (0.0-6.0); HEMATOCRIT 28.2 % (34.2-44.1); HEMOGLOBIN 8.6 g/dL (12.0-16.0); LYMPHOCYTES # (AUTO) 1.1 (1.0-3.2); MEAN CORPUSCULAR HEMOGLOBIN 24.7 pg (28-32); MEAN CORPUSCULAR HGB CONC 30.5 g/dL (31-35); MONOCYTES # (AUTO) 0.7 (0.2-0.8); NEUTROPHILS # (AUTO) 11.4 (2.1-6.9); NEUTROPHILS % 85.6 % (38.7-80.0); PLATELET COUNT 165 x10e3/uL (140-360); RED BLOOD COUNT 3.48 x10e6/uL (3.6-5.1); RED CELL DISTRIBUTION WIDTH 18.9 % (11.7-14.4)
[2019-08-15] MEDS: ACETAMINOPHEN 325 MG TAB PO PRN (05:19)
[2019-08-15 05:27] LABS: ALBUMIN 1.5 g/dL (3.5-5.0); ALBUMIN/GLOBULIN RATIO 0.4 (0.8-2.0); ANION GAP 16.4 mmol/L (8-16); CALCIUM 7.3 mg/dL (8.4-10.2); CREATININE, SERUM 2.83 mg/dL (0.57-1.11); POTASSIUM 3.4 mmol/L (3.5-5.1)
--- NOTE | 2019-08-15 06:22 | Diagnostic Imaging Report ---
EXAMINATION: CHEST SINGLE (PORTABLE) COMPARISON: Chest x-ray 08/14/2019 INDICATION: ^resp failure ^[id number] ^0535 DISCUSSION: Frontal view of the chest obtained at 0553 hours. HEART AND MEDIASTINUM: Stable LINES: Endotracheal tube terminates approximately 3 cm above the vannesa. Enteric tube extends past the diaphragm. Right IJ catheter terminates in the SVC. Tunneled IJ dual-lumen catheter terminates in the left atrium LUNGS: Multifocal airspace opacities are redemonstrated. Stable vascular congestion. Retrocardiac atelectasis is stable PLEURA: Stable left pleural effusion. Tiny right pleural effusion. No pneumothorax BONES AND SOFT TISSUES: Stable. IMPRESSION: 1. Support devices as described above. 2. No change in alveolar edema, retrocardiac atelectasis, and left pleural effusion. Signed by: Dr. Carlos Neumann MD on 08/15/2019 6:19 AM
[2019-08-15] MEDS: LEVOTHYROXINE SODIUM 100 MCG TAB PO SCH (06:24)
--- NOTE | 2019-08-15 06:44 | NUR ---
TEMP UP 103F, NOTIFIED DR JANE'S ANSWERING SERVICE, PT RESTING WILL CONTINUE TO MONITOR
[2019-08-15 07:01] LABS: MAGNESIUM 1.7 MG/DL (1.3-2.1); PHOSPHORUS 3.4 MG/DL (2.3-4.7)
[2019-08-15] MEDS ORDERED: POTASSIUM CHLORIDE 20MEQ/100ML 100 ML IV ONE (08:00)
[2019-08-15 09:00] LABS: LYMPHOCYTES % (MANUAL) 17 % (19-48); NEUTROPHILS % (MANUAL) 83 % (40-74)
[2019-08-15] MEDS: FAMOTIDINE 20 MG/2 ML VIAL IV SCH (09:04)
[2019-08-15] MEDS: ASPIRIN 81 MG ENTERIC COATED PO SCH (09:04)
[2019-08-15] MEDS: CLOPIDOGREL BISULFATE 75 MG TAB PO SCH (09:04)
[2019-08-15] MEDS: HEPARIN SOD (PORCINE) 5,000 UNIT/ML VIAL SC SCH ×2 (09:05→20:47)
[2019-08-15] MEDS: BALSAM PERU/CASTOR OIL 60 GM OINT...G. TP SCH (09:05)
[2019-08-15] MEDS: PANTOPRAZOLE SOD 40 MG TABEC PO SCH (09:05)
[2019-08-15] MEDS ORDERED: VANCOMYCIN 1GM/NS 250 ML 250 ML IV ONE (09:45)
[2019-08-15] MEDS: FLUCONAZOLE 200 MG/100 ML 100 ML IV SCH (10:30)
[2019-08-15] MEDS ORDERED: PROPOFOL IV EMULSION 10MG/ML 100 ML IV PRN (10:45)
[2019-08-15] MEDS: DILTIAZEM HCL 125 ML IV SCH (12:00)
[2019-08-15] MEDS ORDERED: VANCOMYCIN 500MG/NS 0.9% 100ML 100 ML IV PRN (14:30)
--- NOTE | 2019-08-15 15:26 | Progress Note ---
DATE: SUBJECTIVE: Ms. Johnson remains in intensive care unit. There are no family at the bedside. She had fever earlier today. The patient had dialysis yesterday. She remains on vasopressors, Levophed 15 mcg on assist control ventilation. PHYSICAL EXAMINATION: GENERAL: The patient, who is noncommunicative. VITAL SIGNS: Stable with febrile. HEENT: Normocephalic. CHEST: Few crackles. HEART: S1 and S2. No S3, S4, or murmur. ABDOMEN: Soft. Bowel sounds present. No tenderness. EXTREMITIES: No edema. IMPRESSION: 1. Respiratory failure. 2. Pneumonia with methicillin-resistant Staphylococcus aureus. 3. Anemia. 4. Eeabo-id-gxzslbl kidney disease. 5. Severe peripheral vascular disease. 6. Prognosis remains very poor. 7. Respiratory failure. 8. The patient is currently on DNR. Family thinking about hospice. She is currently on fluconazole and vancomycin, metronidazole and cefepime. Continue with the same as ordered. However, her prognosis remains very poor. MD JONATAN Escalante/MODL /[id number]
--- NOTE | 2019-08-15 18:51 | Progress Note ---
DATE: SUBJECTIVE: The patient is receiving dialysis today again. She remains on Levophed. PHYSICAL EXAMINATION: VITAL SIGNS: The patient has a temperature of 100. Her blood pressure is 150/75 and her saturation is 100% on an assist-control with rate of 16. HEENT: Shows no facial swelling or erythema. There is a right IJ line in place. There is a left IJ catheter for dialysis. CARDIAC: Reveals regular rate and rhythm with normal S1 and S2. LUNGS: Auscultation of lungs reveals rhonchorous breath sounds bilaterally. There is no wheezing. ABDOMEN: Soft, nontender. There is no rebound or guarding. EXTREMITIES: Show no leg edema or calf tenderness. IMAGING DATA: Chest x-ray shows bilateral airspace opacities. LABORATORY DATA: White blood cell count is 13.3 and hemoglobin is 8.6. The platelet count is 165. The BUN to creatinine ratio is 39 to 2.83. The other electrolytes are within normal limits. The albumin is 1.5. IMPRESSION: 1. Acute on chronic respiratory failure. 2. Pneumonia with methicillin-resistant Staph aureus. 3. Anemia. 4. Acute on chronic kidney disease. 5. Cardiomyopathy. 6. Metabolic encephalopathy. PLAN: 1. Complete dialysis today and attempt weaning trial starting tomorrow. 2. Continue current antibiotics. 3. Wean Levophed as tolerated. 4. Prognosis remains poor. Case discussed with family and nursing staff, dialysis nurse and Respiratory. Elias Adams MD [facility]/MODL /[id number]
--- NOTE | 2019-08-15 19:06 | Progress Note ---
DATE: Cardiology Progress Note. SUBJECTIVE: The patient is seen in ICU, bed 195. The patient is intubated and the patient is on mild dose of Levophed. The patient is undergoing hemodialysis. IMPRESSION: 1. Acute respiratory failure, vent dependent. 2. Renal failure, on dialysis. 3. Cdakd-mk-eldizzs congestive heart failure. 4. Sepsis. PLAN: The patient's blood pressure on by 70, heart 200 per minute, ox saturation 98%. The patient is sedated and discussed the family members briefly at this time. The patient is very critically ill with multiorgan failure. Discussed the above on my point of view. The patient's ejection fraction is 35%. We will continue present medications. The patient also seen by ID and gas specialist, Dr. Elias Adams. My point of view, continue present treatment and the patient's prognosis is very much guarded and critical and further recommendation as per Dr. Elias Adams and other specialists. I will continue to follow the patient cardiac umanzor. At this time, the patient not in acute CHF. The patient has a chronic CHF and possible sepsis. Luis Alexis MD [facility]/MODL /[id number]
--- NOTE | 2019-08-15 19:41 | NUR ---
Dr. Sr notified of fever, orders given for antibiotics now, and vancomycin after each dialysis. Dialysis done today 2 L removed. Pt went into a fib with elevated HR into 120's, Cardizem drip titrated. Report given to Jaime VALLES.
[2019-08-15] MEDS: CEFEPIME 1GM/NS 0.9% 50 ML 50 ML IV SCH (19:55)
[2019-08-15] MEDS: SERTRALINE HCL 50 MG TAB PO SCH (20:46)
[2019-08-15] MEDS: ATORVASTATIN 10 MG TAB PO SCH (20:46)
[2019-08-15] MEDS: MELATONIN 5 MG TABLET PO SCH (20:50)
[2019-08-15] MEDS: SENNA-S TABLET PO SCH (20:50)
[2019-08-16] VITALS (21 sets, daily range): BP systolic 82–145; BP diastolic 44–91
--- NOTE | 2019-08-16 01:08 | Progress Note ---
DATE: 08/13/2019 SUBJECTIVE: The patient remains on pressors. She is still confused, but arousable. OBJECTIVE: GENERAL: Intubated. VITAL SIGNS: Blood pressure 100/70, temperature 98, respiratory rate 16. LUNGS: Bilateral rales. ABDOMEN: Soft. EXTREMITIES: No edema. NEUROLOGIC: The patient is intubated. There was no lateralization to stimulation. Opens her eyes and brainstem reflexes present. ASSESSMENT: 1. Encephalopathy, mainly metabolic or renal and other. 2. Acute on chronic respiratory failure. 3. Pneumonia. ID following. 4. Anemia. 5. Kidney disease. 6. Cardiomyopathy. RECOMMENDATIONS: Continue supportive care. No neurologic recommendations on this patient. Domingo Loya MD AM/MODL /[id number]
[2019-08-16] MEDS ORDERED: NOREPINEPHRINE 8 MG/D5W 250 ML 250 ML ONE ×4 (01:11→10:35)
[2019-08-16] MEDS: NOREPINEPHRINE INJ 4MG/4ML 8 MG in DEXTROSE 5% 250ML 250 ML IV PRN ×2 (01:13→06:51)
--- NOTE | 2019-08-16 01:23 | Progress Note ---
DATE: 08/14/2019 SUBJECTIVE: The patient is same. She is septic. The blood pressure is still low on pressors. Neuro exam shows no lateralization stimulation, opens eyes. ASSESSMENT: 1. Respiratory failure, ventilator dependent. 2. Renal failure. 3. Sepsis. 4. Low blood pressure, multifactorial, but mainly at this time related to her sepsis. 5. History of heart failure. 6. Encephalopathy, multifactorial, septic as well as related to metabolic abnormalities and less likely related to the recent anoxic incident. 7. Recommend continuing current supportive care. Prognosis remains guarded. Domingo Loya MD AM/MODL /[id number]
[2019-08-16] MEDS: METRONIDAZOLE 500MG/NS 100ML 100 ML IV SCH ×3 (03:38→21:13)
[2019-08-16 05:16] LABS: BASOPHILS % 0.2 % (0.0-1.0); EOSINOPHILS # (AUTO) 0.3 (0.0-0.4); EOSINOPHILS % 1.6 % (0.0-6.0); HEMATOCRIT 28.9 % (34.2-44.1); LYMPHOCYTES # (AUTO) 0.8 (1.0-3.2); LYMPHOCYTES % 4.9 % (18.0-39.1); MEAN CORPUSCULAR HEMOGLOBIN 24.9 pg (28-32); MEAN CORPUSCULAR HGB CONC 31.1 g/dL (31-35); MEAN CORPUSCULAR VOLUME 79.8 fL (81-99); MONOCYTES # (AUTO) 0.4 (0.2-0.8); MONOCYTES % 2.2 % (4.4-11.3); NEUTROPHILS % 89.8 % (38.7-80.0); PLATELET COUNT 106 x10e3/uL (140-360); RED BLOOD COUNT 3.62 x10e6/uL (3.6-5.1); RED CELL DISTRIBUTION WIDTH 19.3 % (11.7-14.4)
[2019-08-16 05:36] LABS: ANION GAP 15.2 mmol/L (8-16); POTASSIUM 3.2 mmol/L (3.5-5.1)
[2019-08-16] MEDS: LEVOTHYROXINE SODIUM 100 MCG TAB PO SCH ×2 (06:00→06:38)
--- NOTE | 2019-08-16 09:45 | NUR ---
ST Note: Pt continues to require mechanical ventilation. Will f/u as indicated.
[2019-08-16] MEDS: FLUCONAZOLE 200 MG/100 ML 100 ML IV SCH (09:58)
[2019-08-16] MEDS: CLOPIDOGREL BISULFATE 75 MG TAB PO SCH (09:58)
[2019-08-16] MEDS: ASPIRIN 81 MG ENTERIC COATED PO SCH (09:58)
[2019-08-16] MEDS: BALSAM PERU/CASTOR OIL 60 GM OINT...G. TP SCH (09:58)
[2019-08-16] MEDS: FAMOTIDINE 20 MG/2 ML VIAL IV SCH (09:58)
--- NOTE | 2019-08-16 11:00 | NUR ---
Follow-up Visit Pt undergoing dialysis with daughter and son at bedside. Pt's daughter remains hopeful concerning mother's illness. Family continues to look for signs of improvement. Provided unhurried pastoral presence. Facilitated storytelling. Provided prayer with family. Will continue to follow as able. MIKE MARIE [employer] Spiritual Care Department O: [phone] Pager: [phone] ([phone] number calling from)
[2019-08-16] MEDS: FUROSEMIDE INJ 100 MG in SODIUM CHLORIDE 0.9% 100 ML 90 ML IV SCH ×4 (11:13→20:00)
[2019-08-16] MEDS: DILTIAZEM HCL 125 ML IV SCH (11:13)
[2019-08-16] MEDS: PANTOPRAZOLE 40 MG 10ML VIAL IV SCH (12:47)
[2019-08-16] MEDS ORDERED: ALBUMIN 25% 25GM 100ML 0.25 GM/ML BTL IV ONE (13:00)
--- NOTE | 2019-08-16 13:14 | NUR ---
Nutrition Intervention Note RD Recommendation(s) for Physician: - Recommend trickle tube feeds of Vital HP at 10 ml/hr. If pt remains hemodynamically stable, advance as tolerated to goal rate of 50 ml/hr (provides 1200 kcal, 105 gram protein) -IVF management and water flushes per MD. Plan of Care: RD following, monitoring for tolerance and adequacy. TF rec's Nutrition reason for involvement: follow up RD Assessment 08/16: Follow up. Pt remains intubated, receiving HD at time of visit. Precedex and lasix drips stopped this am. Pt discussed during am MDR, tentative plan for extubation today and pt remains NPO. TF rec's and current NPO status discussed with RN on unit. Chart reviewed. Will continue to monitor. 08/13: Follow up note. Tube feed order was cancelled yesterday. RN reported that tube feeding was stopped due to pts pressor support. Recommend resuming tube feeding when pt is hemodynamically stable. Pt is going to be started on dialysis. Will continue to monitor. 08/09: 84 YOF admitted for resp distress with PMH listed below. The pt was seen within the ICU intubated, no sedation. The pt is on 2 pressors (dopamine and levo), current rates are not recorded within EMR. MD ordered Osmolite at 10 ml/hr. Since pt is intubated, recommend Vital at this time. Per MD note- the family is considering withdrawal. Pt was also started on a bicarb drip. Will continue to monitor. Principal Problems/Diagnoses: Resp Distress PMH: Hypothyroidism, Congestive heart failure , Coronary artery disease, Hyperlipidemia, Hypertension, GERD, Abdominal ventral hernia, Hypothyroidism, Peripheral vascular disease, CVA. GI: Abd: soft, round LBM: 08/16 Skin: sacral DTI Labs: 08/16: Na 132, K 3.2, BUN 39, Cr 3, Gluc 133 08/13: Na 134, BUN 77, Creat 4.19 08/09: lactic acid: 2.8, B-Farzana peptide 7128 Meds: norepinephrine at 5 mcg/min, abx, protonix, pepcid, furosemide, levothyroxine, lipitor Ht: 61 in Wt: 117 lbs (08/13) 111 lbs (08/10) BMI: 22.2 kg/m^2 IBW: 105 lbs Malnutrition Evaluation 08/13 Unable to evaluate at this time. Will re-evaluate at follow-up as appropriate. Energy intake: <50% of estimated energy requirements for >5 days Weight loss: -unable to evaluate Fat loss: unable to evaluate Muscle loss, unable to evaluate Nutrition Prescription (Diet Order): NPO Estimated Nutritional Needs: Calories:7863-6708 kcal/day (20-25 kcal/kg/day) Weight used : 50 kg Protein : 65-100 protein/day (1.3-2 gram/kg/day ) Weight used: 50 kg Diet Adequacy:Not meeting calorie needs, Not meeting protein needs Diet Education Needs Assessment: Diet education not indicated, patient on temporary/transition diet. Nutrition Care Level: high Nutrition Diagnosis: Inadequate energy intake related to medical condition as evidenced by the pts need for intubation and is currently NPO. Goal: Patient will meet 75-100% of estimated needs by follow up Progress: not progressing Interventions: Composition, Rate, Route, Collaboration with other providers Monitoring/Evaluation: -Total energy intake, Total protein intake, Formula/Solution, IVF, Prescription medication Signed: Tashia Ventura RD, [place], [facility]
[2019-08-16] MEDS ORDERED: ALBUMIN 25% 25GM 100ML 200 ML IV ONE (13:30)
--- NOTE | 2019-08-16 14:00 | NUR ---
WOUND CARE CONSULT FOR FOLLOW UP SCREENING FOR SACRAL DTI ASSESSMENT COMPLETE AREA REMAINS CLOSED DARK PURPLE SACRAL BLISTER SURFACE 9CM X 10 CM PATIENT ON VASOPRESSORS AND DEBILITATED WITH PROBABLE SKIN FAILURE PATIENT REMAINS ON STRICT PUP STATUS AND ALTERNATING PRESSURE SURFACE WITH Q 2 HOUR TURNS AND REPOSITIONING Addendum: 08/16/19 at 1407 by Elías Duarte RN Amended: Links added.
--- NOTE | 2019-08-16 15:46 | Progress Note ---
DATE: SUBJECTIVE: The patient had dialysis again today. She remains on Levophed and Levophed had to be increased to 25 mcg. She was placed on a spontaneous breathing trial. She is on CPAP of 5 with pressure support of 8 and is breathing about 30 times a minute with tidal volumes of 350 mL. PHYSICAL EXAMINATION: VITAL SIGNS: The patient is afebrile. The blood pressure is 140/91 and the pulse is 104. HEENT: Shows no facial swelling or erythema. CARDIAC: Reveals regular rate and rhythm with normal S1 and S2. There are no murmurs or rubs. LUNGS: Auscultation of lungs reveals clear breath sounds bilaterally. There is no wheezing. ABDOMEN: Soft and nontender. There is no rebound or guarding. EXTREMITIES: Shows no leg edema or calf tenderness. There is no cyanosis or clubbing. SKIN: Shows no rashes. NEUROLOGICAL: Shows no focal abnormalities. LABORATORY DATA: White blood cell count is 16.6 and the hemoglobin is 9. The platelet count is 106. Carbon dioxide is 20 and the potassium is 3.2. The sodium is 132. Calcium is 7. IMPRESSION: 1. Pneumonia with methicillin-resistant Staph aureus. 2. Bwpiw-fs-ollrmqj respiratory failure. 3. Vvqcr-kn-rnewauu renal disease. 4. Cardiomyopathy. 5. Anemia. 6. Metabolic encephalopathy. PLAN: 1. Continue current antibiotics. 2. Continue pressure support and CPAP as tolerated. 3. Wean Levophed. 4. If the patient cannot be extubated within the next 1 to 2 days, she will require tracheostomy. 5. Prognosis remains poor. 6. Case discussed with nursing staff, Respiratory, and family. Greater than 35 minutes in direct critical care time. Elias Adams MD [facility]/MODL /[id number]
[2019-08-16 15:50] LABS: ABG HCO3 16 mmol/L (23-28); ABG PCO2 26 mmHg (41-51); ABG PH 7.38 (7.31-7.41); ABG PO2 90 mmHg (80-105)
--- NOTE | 2019-08-16 20:02 | Progress Note ---
DATE: 08/16/2019 Cardiology Progress Note SUBJECTIVE: The patient at this time is intubated. The patient also has a significant renal failure. The patient is seen by Dr. Elias Adams and also radiotelephone operator. At this time, I confined myself to cardiovascular system. The patient at this time is not responding to any questions. The patient has severe renal failure and also heart failure and respiratory failure. The patient's antibiotics and present medications to continue. OBJECTIVE: VITAL SIGNS: At this time, blood pressure 100/70, heart rate is 95 per minute. ASSESSMENT/PLAN: The patient's prognosis is very much guarded and poor. I believe the patient is a no code patient because of multiorgan dysfunction. I agree that this patient is very critically ill and the patient's family member also at the bedside. I had a very brief discussion with them. My point of view, the patient is critical. Prognosis is guarded. We will continue present care. MD DELFINO Ashford/LIZETH /[id number]
[2019-08-16] MEDS: CEFEPIME 1GM/NS 0.9% 50 ML 50 ML IV SCH (20:30)
[2019-08-16] MEDS: MELATONIN 5 MG TABLET PO SCH (21:14)
[2019-08-16] MEDS: SERTRALINE HCL 50 MG TAB PO SCH (21:14)
[2019-08-16] MEDS: ATORVASTATIN 10 MG TAB PO SCH (21:14)
[2019-08-16] MEDS: SENNA-S TABLET PO SCH (21:14)
[2019-08-17] VITALS (17 sets, daily range): BP systolic 45–104; BP diastolic 18–73
[2019-08-17] MEDS: NOREPINEPHRINE INJ 4MG/4ML 8 MG in DEXTROSE 5% 250ML 250 ML IV PRN (00:08)
[2019-08-17] MEDS: METRONIDAZOLE 500MG/NS 100ML 100 ML IV SCH (05:04)
[2019-08-17 05:42] LABS: BASOPHILS % 0.3 % (0.0-1.0); EOSINOPHILS # (AUTO) 0.1 (0.0-0.4); EOSINOPHILS % 0.8 % (0.0-6.0); HEMATOCRIT 24.3 % (34.2-44.1); HEMOGLOBIN 7.6 g/dL (12.0-16.0); LYMPHOCYTES # (AUTO) 0.6 (1.0-3.2); LYMPHOCYTES % 4.1 % (18.0-39.1); MEAN CORPUSCULAR HEMOGLOBIN 25.2 pg (28-32); MEAN CORPUSCULAR HGB CONC 31.3 g/dL (31-35); MEAN CORPUSCULAR VOLUME 80.7 fL (81-99); MONOCYTES # (AUTO) 0.4 (0.2-0.8); MONOCYTES % 2.4 % (4.4-11.3); NEUTROPHILS # (AUTO) 13.5 (2.1-6.9); NEUTROPHILS % 91.5 % (38.7-80.0); PLATELET COUNT 52 x10e3/uL (140-360); RED BLOOD COUNT 3.01 x10e6/uL (3.6-5.1); RED CELL DISTRIBUTION WIDTH 19.1 % (11.7-14.4)
[2019-08-17 05:44] LABS: ALBUMIN 2.7 g/dL (3.5-5.0); ANION GAP 17.8 mmol/L (8-16); CALCIUM 7.2 mg/dL (8.4-10.2); CREATININE, SERUM 3.12 mg/dL (0.57-1.11)
--- NOTE | 2019-08-17 05:44 | Diagnostic Imaging Report ---
Examination: Single AP view of the chest. COMPARISON: 08/15/2019 INDICATION: Respiratory failure DISCUSSION: See impression IMPRESSION: 1. Endotracheal tube, enteric tube, right internal jugular central venous catheter, and left internal jugular temporary hemodialysis catheter are unchanged in position. 2. Interval improvement in pulmonary edema relative to 08/15/2019. Persistent moderate left pleural effusion with probable passive atelectasis of the lower lobe. 3. Stable cardiomediastinal contour with postsurgical mediastinum. 4. No acute osseous abnormality. Signed by: Dr. Grant Coto M.D. on 08/17/2019 5:41 AM
[2019-08-17 05:45] LABS: POTASSIUM 2.8 mmol/L (3.5-5.1)
[2019-08-17] MEDS ORDERED: NOREPINEPHRINE 8 MG/D5W 250 ML 250 ML ONE (05:52)
[2019-08-17] MEDS: FUROSEMIDE INJ 100 MG in SODIUM CHLORIDE 0.9% 100 ML 90 ML IV SCH (05:54)
[2019-08-17] MEDS: LEVOTHYROXINE SODIUM 100 MCG TAB PO SCH (05:54)
--- NOTE | 2019-08-17 06:23 | NUR ---
Palliative care referral was called. I spoke to Altagracia
[2019-08-17] MEDS ORDERED: POTASSIUM CHLORIDE 20MEQ/100ML 100 ML IV ONE ×3 (07:45→08:30)
[2019-08-17] MEDS ORDERED: POTASSIUM CHLORIDE 20MEQ/100ML 100 ML ONE (08:17)
--- NOTE | 2019-08-17 08:17 | NUR ---
FAMILY SIGNED CHOICE FOR [facility] FILED IN CHART, CONTACTED REP AND SHE IS SETTING UP MEETING WITH FAMILY. PT LIVES AT [facility]. CHECKED AND CLAIR HAS A CONTRACT SO SHOULD BE ABLE TO GET BACK TO HER FACILITY.
[2019-08-17] MEDS: PANTOPRAZOLE 40 MG 10ML VIAL IV SCH (08:41)
[2019-08-17] MEDS: FAMOTIDINE 20 MG/2 ML VIAL IV SCH (08:41)
[2019-08-17] MEDS: ASPIRIN 81 MG ENTERIC COATED PO SCH (08:41)
[2019-08-17] MEDS: CLOPIDOGREL BISULFATE 75 MG TAB PO SCH (08:42)
[2019-08-17] MEDS: BALSAM PERU/CASTOR OIL 60 GM OINT...G. TP SCH (08:42)
--- NOTE | 2019-08-17 08:59 | NUR ---
ST Note: Pt continues to require mechanical ventilation. Will f/u as indicated.
--- NOTE | 2019-08-17 09:41 | NUR ---
I WAS CONTACTED BY [facility] STATING THAT THE DAUGHTER WAS CALLED BY [facility] AND TOLD THEY COULD GET THE PT IN TO A LOCAL FACILITY. i CALLED THE DAUGHTER AND SHE STATES [facility] CALLED HER AND PROMISED HER A BED FOR FREE AT THE [facility]. AND SHE NOW IS CONFUSED AND NOT UNDERSTANDING OF WHAT IS GOING ON. BECAUSE SHORTLY AFTER THAT IS WHEN THE [facility] COMPANY CALLED HER. i CALLED JORDON AND ASKED HOW THEY EVEN GOT THE PT INFORMATION TO CONTACT THE FAMILY, THERE WAS NO CONSENT FOR THE CALL. AND TO BE TELLING THE FAMILY THEY WILL BE ABLE TO GET A BED IS TOTALLY INCORRECT. I WILL MEET WITH THE DAUGHTER WHEN SHE GETS TO THE HOSPITAL AND GO OVER ALL OPTIONS AND LET HER MAKE THE DECISION AT THAT TIME.
[2019-08-17] MEDS: FLUCONAZOLE 200 MG/100 ML 100 ML IV SCH (10:35)
--- NOTE | 2019-08-17 11:33 | NUR ---
Jyoti, patient's daughter, signed documents for [facility] to care for the patient.
--- NOTE | 2019-08-17 11:33 | NUR ---
SPOKE WITH ENTIRE FAMILY, EDUCATED ABOUT THE DIFFERENCE BETWEEN PALLATIVE CONSULT AND HOSPICE CONSULT. EDUCATED ABOUT CHOICE AND THE DIFFERENT COMPANIES, LET KNOW THAT I STOPPED ALL FROM SEEING PT UNTIL MEETING WITH ENTIRE FAMILY. FAMILY HAS DECIDED TO TAKE PT HOME ON HOSPICE, WANTS TO MEET WITH SEASONS TO INTERVIEW THEM FIRST TO SEE IF THEY ARE A GOOD FIT. WILL LET ME KNOW IF THEY CHOOSE THEM OR WANT TO MEET WITH ANOTHER COMPANY. WISH TO CONTINUE WITH EXTUBATION, LET NURSE KNOW.
[2019-08-17] MEDS ORDERED: LORAZEPAM INJ 2 MG/ML VIAL IV PRN (12:00)
[2019-08-17] MEDS ORDERED: MORPHINE SULFATE INJ 4 MG/ML INJ 1ML IV PRN (12:00)
--- NOTE | 2019-08-17 12:00 | NUR ---
ASSESSMENT: Spiritual distress Pt's family requested buyers' agent for prayer prior to extubation. Pt's family expressing anticipatory grief. Intervention: Provided prayer from Jain tradition. Provided calming pastoral presence and compassionate touch. Outcome: Will follow as able. MIKE MARIE [employer] Spiritual Care Department O: [phone] Pager: [phone] ([phone] number calling from)
--- NOTE | 2019-08-17 12:00 | NUR ---
Extubated to 4L at 1200 per family request and physician's order.
--- NOTE | 2019-08-17 14:21 | Progress Note ---
DATE: SUBJECTIVE: Family has opted for withdrawal of life support and palliative care. They did not want tracheostomy. PHYSICAL EXAMINATION: VITAL SIGNS: The patient is afebrile. Blood pressure is 100/56, on Levophed. Pulse is 103. HEENT: Shows no facial swelling or erythema. CARDIAC: Reveals a regular rate and rhythm with normal S1 and S2. LUNGS: Auscultation of lungs reveals rhonchorous breath sounds bilaterally. There is no wheezing. ABDOMEN: Soft and nontender. There is no rebound or guarding. EXTREMITIES: Shows no leg edema or calf tenderness. There is no cyanosis or clubbing. LABORATORY DATA: Sodium is 128 and potassium is 2.8. The BUN to creatinine ratio is 40 to 3.12. White blood cell count is 14.8 and the hemoglobin is 7.6. Platelet count is 52. RADIOGRAPHIC DATA: Chest x-ray shows interval improvement in the pulmonary edema. IMPRESSION: 1. Jwwhv-om-yrurtfc respiratory failure. 2. Pneumonia with methicillin-resistant Staph aureus. 3. Lucjm-sk-bsbhrwk renal failure. 4. Systolic congestive heart failure. 5. Anemia. 6. Metabolic encephalopathy. PLAN: 1. The patient will be extubated. 2. Palliative care for now and we will arrange for hospice at home. 3. Wean the patient off Levophed. 4. Continue antibiotics. 5. Narcotics and sedatives as needed for comfort. Elias Adams MD [facility]/MODL /[id number]
--- NOTE | 2019-08-17 14:31 | Consultation ---
DATE OF CONSULTATION: 08/17/2019 Hospital Consultation HISTORY OF PRESENT ILLNESS: I was kindly asked to see this 84-year-old woman for evaluation of possible tracheostomy tube placement. The patient has required prolonged ventilator support and it is anticipated she will continue to need ventilator support. Since I was called for the consultation, the family has elected to not proceed with a tracheostomy and proceed with hospice care only. ASSESSMENT: Respiratory failure. PLAN: 1. Will be on standby for tracheostomy if the patient's family changes their mind regarding the need for tracheostomy tube. 2. Please call if needed. Thank you for this consultation. MD VINICIO Bejarano/LIZETH /[id number]
--- NOTE | 2019-08-17 15:24 | NUR ---
1524 Cessation of vital signs, family gathered at bedside. Dr Mara albright.
--- NOTE | 2019-08-17 15:32 | NUR ---
[address] Bliss, ED physician.
--- NOTE | 2019-08-17 15:44 | NUR ---
[facility] called and patient does not meet criteria to proceed. Case #[id number].
--- NOTE | 2019-08-17 15:49 | NUR ---
[facility] [address] [place] [id number], spoke with Mickey Aiken @ [phone]. He is unable to give an ETA.
--- NOTE | 2019-08-17 17:00 | NUR ---
Patient to home.
--- NOTE | 2019-08-17 18:00 | NUR ---
Information documented in Restraint Log
--- NOTE | 2019-08-19 10:37 | Progress Note ---
DATE: 08/17/2019 Discussed at bedside with the nurse, family decided on extubation and comfort care. No further recommendations. Domingo Loya MD [facility]/LIZETH /[id number]
== END 2019-08-17 17:01 | disposition expired | DRG 870 ==
LOC: ER 15:51 → ERHOLD 16:14 → IMCU 20:09 → ICU 08-06 15:43
PROVIDERS: ADMIT Internal Medicine Critical Care Medicine; ATTEND Internal Medicine Critical Care Medicine
PROC: 5A1955Z Respiratory Ventilation, Greater than 96 Consecutive Hours (ICD-10-PCS; principal; 2019-08-08)
PROC: 0BH17EZ Insertion of Endotracheal Airway into Trachea, Via Natural or Artificial Opening (ICD-10-PCS; 2019-08-08)
PROC: 5A12012 Performance of Cardiac Output, Single, Manual (ICD-10-PCS; 2019-08-08)
PROC: 02HV33Z Insertion of Infusion Device into Superior Vena Cava, Percutaneous Approach (ICD-10-PCS; 2019-08-08)
PROC: B548ZZA Ultrasonography of Superior Vena Cava, Guidance (ICD-10-PCS; 2019-08-08)
PROC: 3E043XZ Introduction of Vasopressor into Central Vein, Percutaneous Approach (ICD-10-PCS; 2019-08-08)
PROC: 02H633Z Insertion of Infusion Device into Right Atrium, Percutaneous Approach (ICD-10-PCS; 2019-08-13)
PROC: B548ZZA Ultrasonography of Superior Vena Cava, Guidance (ICD-10-PCS; 2019-08-13)
PROC: 5A1D70Z Performance of Urinary Filtration, Intermittent, Less than 6 Hours Per Day (ICD-10-PCS; 2019-08-13)
PROC: 5A1D70Z Performance of Urinary Filtration, Intermittent, Less than 6 Hours Per Day (ICD-10-PCS; 2019-08-14)
PROC: 5A1D70Z Performance of Urinary Filtration, Intermittent, Less than 6 Hours Per Day (ICD-10-PCS; 2019-08-15)
PROC: 5A1D70Z Performance of Urinary Filtration, Intermittent, Less than 6 Hours Per Day (ICD-10-PCS; 2019-08-16)
DX: A41.9 Sepsis, unspecified organism (principal); J96.20 Acute and chronic respiratory failure, unspecified whether with hypoxia or hypercapnia; I50.23 Acute on chronic systolic (congestive) heart failure; J69.0 Pneumonitis due to inhalation of food and vomit; N17.0 Acute kidney failure with tubular necrosis; R65.21 Severe sepsis with septic shock; G93.41 Metabolic encephalopathy; J15.212 Pneumonia due to Methicillin resistant Staphylococcus aureus; K63.3 Ulcer of intestine; K55.9 Vascular disorder of intestine, unspecified; E87.2 Acidosis; B37.89 Other sites of candidiasis; Z99.11 Dependence on respirator [ventilator] status; I46.9 Cardiac arrest, cause unspecified; E87.6 Hypokalemia; K56.41 Fecal impaction; Z89.612 Acquired absence of left leg above knee; F03.90 Unspecified dementia, unspecified severity, without behavioral disturbance, psychotic disturbance, mood disturbance, and anxiety; I25.10 Atherosclerotic heart disease of native coronary artery without angina pectoris; N14.1 Nephropathy induced by other drugs, medicaments and biological substances; T50.8X5A Adverse effect of diagnostic agents, initial encounter; E03.9 Hypothyroidism, unspecified; E78.5 Hyperlipidemia, unspecified; B95.62 Methicillin resistant Staphylococcus aureus infection as the cause of diseases classified elsewhere; Z95.1 Presence of aortocoronary bypass graft; I35.0 Nonrheumatic aortic (valve) stenosis; Z66 Do not resuscitate
CPT/HCPCS: 36415; 36556; 36600; 51700; 71045; 71260; 74018; 74176; 74177; 74470; 76770; 76937; 80048; 80053; 81001; 81015; 82140; 82550; 82553; 82570; 82805; 82948; 83605; 83735; 83880; 84100; 84156; 84166; 84300; 84484; 85025; 85610; 85730; 86704; 87040; 87070; 87086; 87186; 87205; 87340; 87400; 87493; 90962; 92950; 93005; 93306; 94002; 94003; 94640; 94660; 95822; 96360; 97139; 99285; C1769; J0171; J0330; J0456; J0692; J1450; J1644; J1650; J1940; J2060; J2150; J2270; J2543; J3370; J3480; J7030; J7050; J7070; P9047; Q9967